=== PATIENT | male | born 1980 | race Caucasian/White ===

== ENCOUNTER → 2021-06-11 21:51 | Outpatient (CLI) | payer OTHER, SELFPAY ==
[2021-06-11 22:31] LABS: Absolute Lymphocyte Count 2.41 X10^3/uL (0.83-4.51); Absolute Neutrophil Count 2.2 X10^3/uL (2.0-7.7); Basophil# 0.04 X10^3/uL; Basophil% 0.7 % (0-1); Eosinophil# 0.36 X10^3/uL; Eosinophils% 6.4 % (0-5); Hemoglobin 14.6 g/dL (13.0-16.5); Lymphocyte # 2.41 X10^3/ul (0.83-4.51); Mean Corp Hgb Conc 33.2 g/dL (32-36); Mean Corpuscular Hgb 30.9 pg (27.0-32.0); Mean Platelet Vol. 11.8 fl (6.2-12.0); Monocyte# 0.56 X10^3/uL; NRBC Flagged by Analyzer 0 % (0-5); Neutrophil # 2.23 X10^3/uL (2.7-7.7); Neutrophil % 39.7 % (47-70); Platelet Count 203 K/mm3 (150-450); RBC Distribution Width CV 12.9 % (11.6-14.6); RBC Distribution Width SD 44.6 fl (35.1-43.9); Red Blood Count 4.73 M/mm3 (4.6-6.2); White Blood Count 5.6 K/mm3 (4.4-11.0)
[2021-06-11 22:46] LABS: ALB/GLOB Ratio 1.2 RATIO (0.9-2.4); AST(SGOT) 24 U/L (15-37); Alanine Aminotransfer ALT/SGPT 51 U/L (16-61); Albumin, Serum 4.1 g/dL (3.2-5.0); Alkaline Phosphatase 84 U/L (45-117); Anion Gap 1 (5-15); BUN 17 mg/dL (7-18); BUN/Creat Ratio 17.4 RATIO (10-20); Calcium,Total 9.1 mg/dL (8.5-10.1); Chloride 106 mmol/L (98-107); Cholesterol 178 mg/dL (200); Creatinine, Serum 0.98 mg/dL (0.70-1.30); EST Glomerular Filtration Rate 91 mL/min (>60); Est Glom Filt Rate - Afr Amer 110 mL/min (>60); Globulin 3.4 g/dL (2.2-4.2); Glucose 83 mg/dL (74-106); High Density Lipoprotein 54 mg/dL; Potassium 3.7 mmol/L (3.5-5.1); Protein, Total 7.5 g/dL (6.4-8.2); Sodium Level 138 mmol/L (136-145); Triglycerides 143 mg/dL; Very Low Density Lipoprotein 29 mg/dL (5-40)
== END ==
PROVIDERS: Visit Provider Nurse Practitioner
DX: Z00.00 Encounter for general adult medical examination without abnormal findings (principal)
CPT/HCPCS: 80053; 80061; 85025

== ENCOUNTER → 2022-06-07 | Outpatient (CLI) | payer OTHER, SELFPAY ==
[2022-06-07 23:03] LABS: Absolute Lymphocyte Count 2.13 X10^3/uL (0.83-4.51); Absolute Neutrophil Count 2.6 X10^3/uL (2.0-7.7); Basophil# 0.05 X10^3/uL; Basophil% 0.9 % (0-1); Eosinophil# 0.35 X10^3/uL; Eosinophils% 6.3 % (0-5); Hematocrit 42.4 % (40-54); Hemoglobin 14.5 g/dL (13.0-16.5); Lymphocyte # 2.13 X10^3/ul (0.83-4.51); Lymphocyte % 38.2 % (19-41); Mean Corp Hgb Conc 34.2 g/dL (32-36); Mean Corpuscular Hgb 31.3 pg (27.0-32.0); Mean Corpuscular Volume 91.4 fL (80-94); Mean Platelet Vol. 11.7 fl (6.2-12.0); Monocyte# 0.43 X10^3/uL; Monocyte% 7.7 % (0-10); NRBC Flagged by Analyzer 0 % (0-5); Neutrophil % 46.7 % (47-70); Platelet Count 189 K/mm3 (150-450); RBC Distribution Width CV 12.7 % (11.6-14.6); RBC Distribution Width SD 42.3 fl (35.1-43.9); Red Blood Count 4.64 M/mm3 (4.6-6.2); White Blood Count 5.6 K/mm3 (4.4-11.0)
[2022-06-07 23:23] LABS: ALB/GLOB Ratio 1.3 RATIO (0.9-2.4); AST(SGOT) 23 U/L (15-37); Alanine Aminotransfer ALT/SGPT 42 U/L (16-61); Albumin, Serum 3.9 g/dL (3.2-5.0); Alkaline Phosphatase 82 U/L (45-117); Anion Gap 6 (5-15); BUN 13 mg/dL (7-18); BUN/Creat Ratio 11.2 RATIO (10-20); Calcium,Total 8.6 mg/dL (8.5-10.1); Chloride 107 mmol/L (98-107); Cholesterol 176 mg/dL (200); Creatinine, Serum 1.16 mg/dL (0.70-1.30); EST Glomerular Filtration Rate 74 mL/min (>60); Est Glom Filt Rate - Afr Amer 90 mL/min (>60); Globulin 3.1 g/dL (2.2-4.2); Glucose 99 mg/dL (74-106); High Density Lipoprotein 48 mg/dL; Potassium 3.7 mmol/L (3.5-5.1); Sodium Level 140 mmol/L (136-145); Triglycerides 176 mg/dL; Very Low Density Lipoprotein 35 mg/dL (5-40)
== END | disposition home or self-care (01) ==
PROVIDERS: Visit Provider Nurse Practitioner
DX: Z00.00 Encounter for general adult medical examination without abnormal findings (principal)
CPT/HCPCS: 80053; 80061; 85025

== ENCOUNTER → 2023-06-09 | Outpatient (CLI) | payer OTHER, SELFPAY ==
[2023-06-09 22:48] LABS: Absolute Lymphocyte Count 2.57 X10^3/uL (0.83-4.51); Absolute Neutrophil Count 2.4 X10^3/uL (2.0-7.7); Basophil# 0.08 X10^3/uL; Basophil% 1.3 % (0-1); Eosinophil# 0.44 X10^3/uL; Eosinophils% 7.4 % (0-5); Hematocrit 45.4 % (40-54); Hemoglobin 14.9 g/dL (13.0-16.5); Lymphocyte # 2.57 X10^3/ul (0.83-4.51); Mean Corp Hgb Conc 32.8 g/dL (32-36); Mean Corpuscular Volume 94.6 fL (80-94); Mean Platelet Vol. 11.5 fl (6.2-12.0); Monocyte# 0.46 X10^3/uL; Monocyte% 7.7 % (0-10); NRBC Flagged by Analyzer 0 % (0-5); Neutrophil # 2.43 X10^3/uL (2.7-7.7); Neutrophil % 40.6 % (47-70); Platelet Count 241 K/mm3 (150-450); RBC Distribution Width CV 13.3 % (11.6-14.6)
[2023-06-09 23:03] LABS: ALB/GLOB Ratio 1.2 RATIO (0.9-2.4); AST(SGOT) 23 U/L (15-37); Alanine Aminotransfer ALT/SGPT 37 U/L (16-61); Albumin, Serum 3.8 g/dL (3.2-5.0); Alkaline Phosphatase 85 U/L (45-117); Anion Gap 4 (5-15); BUN 15 mg/dL (7-18); BUN/Creat Ratio 13.5 RATIO (10-20); Calcium,Total 8.9 mg/dL (8.5-10.1); Chloride 105 mmol/L (98-107); Cholesterol 172 mg/dL (200); Creatinine, Serum 1.11 mg/dL (0.70-1.30); EST Glomerular Filtration Rate 78 mL/min (>60); Est Glom Filt Rate - Afr Amer 94 mL/min (>60); Globulin 3.3 g/dL (2.2-4.2); Glucose 89 mg/dL (74-106); High Density Lipoprotein 50 mg/dL; PSA,Total - Annual Screen 0.69 ng/mL (0.00-4.00); Potassium 4.4 mmol/L (3.5-5.1); Protein, Total 7.1 g/dL (6.4-8.2); Sodium Level 138 mmol/L (136-145); Triglycerides 214 mg/dL; Very Low Density Lipoprotein 43 mg/dL (5-40)
== END | disposition home or self-care (01) ==
PROVIDERS: PCP Nurse Practitioner; Visit Provider Nurse Practitioner
DX: Z00.00 Encounter for general adult medical examination without abnormal findings (principal); Z12.5 Encounter for screening for malignant neoplasm of prostate
CPT/HCPCS: 80053; 80061; 84153; 85025; G0103

== ENCOUNTER → 2025-05-16 | Outpatient (CLI) | payer OTHER, SELFPAY ==
--- OUTSIDE RECORDS SUMMARY | 2025-05-16 21:55 | XMS RPT_ITS | CCD ---
Author Organization [facility] InformFormerly [facility] Care Team Providers Care Parcel Post Clerk Name Role Phone Boytim DO, V Jerrod Primary Care Provider Boytim DO, V Jerrod Primary Care Provider Rupali Pro PA-C Unavailable [phone] BOYTIM, V JERROD Primary Care Unavailable KIA RAMSEY Attending Unavailable BOYTIM, V JERROD Primary Care Unavailable BOYTIM, V JERROD Primary Care Unavailable SHAINA MEJÍA Attending Unavailable BOYTIM, V JERROD Primary Care Unavailable KIA RAMSEY Attending Unavailable BOYTIM, V JERROD Primary Care Unavailable KIA RAMSEY Admitting Unavailable KIA RAMSEY Attending Unavailable BOYTIM, V JERROD Primary Care Unavailable GIOVANNY LU Attending Unavailable BOYTIM, V JERROD Primary Care Unavailable GIOVANNY LU Referring Unavailable BOYTIM, V JERROD Primary Care Unavailable ESSENCE SMITH Attending Unavailable BOYTIM, V JERROD Primary Care Unavailable KIA RAMSEY Attending Unavailable Allergies Allergy Classification Reported Allergen(s) Allergy Type Date of Onset Reaction(s) Facility (6 sources) Seasonal allergy; Translations: [SEASONAL ALLERGIES] Allergy to substance Other: See Comments [facility] Medications Current Medications Medication Drug Class(es) Dates Sig (Normalized) Sig (Original) amoxicillin 875 mg / clavulanate 125 mg oral tablet (1 source) Penicillin-class Antibacterial Start: 12-14-2022 End: 12-19-2022 take 1 tablet by mouth twice daily amoxicillin-clavul anic acid (AUGMENTIN) 875-125 mg per tablet Take 1 tablet by mouth twice daily for 5 days. 10 tablet 0 12/14/2022 12/19/2022 Active Comment on above: Take 1 tablet by man twice daily for 5 days. L.acidophilus-L.rha mnosus (PROBIOTIC) 15 billion cell capsule (5 sources) take 1 capsule by mouth once daily L.acidophilus-L.rh amnosus (PROBIOTIC) 15 billion cell capsule Take 1 capsule by mouth once daily. Active magnesium oxide 500 mg oral tablet (10 sources) Magnesium Oxide 500 mg magnesium tab Take by mouth once daily. Active pantoprazole 40 mg delayed release oral tablet (12 sources) Proton Pump Inhibitor Start: 05-30-2024 End: 08-08-2024 take 1 tablet by mouth once daily pantoprazole DR (PROTONIX) 40 mg tablet Take 1 tablet by mouth once daily. 90 tablet 08/08/2024 Active Polyethylene Glycols (10 sources) polyethylene glycol 3350 (MIRALAX ORAL) Take by mouth once daily. Active Completed/Discontinued Medications Medication Drug Class(es) Dates Sig (Normalized) Sig (Original) Buderers ointment (1 source) Start: 08-17-2019 Buderers ointment Nifedipine 0.3 % Lidocaine 2% Hydrocortisone 1.5% rectal ointment Apply 2-3 times a day to rectal area and up to 1cm inside as directed 30 g 2 08/17/2019 Active Comment on above: Nifedipine 0.3 % Lid ocaine 2% Hydrocortisone 1.5% rectal ointment Apply 2-3 times a day to rectal area and up to 1cm inside as directed nitroglycerin 0.004 mg/mg rectal ointment (1 source) Nitrate Vasodilator Start: 11-27-2021 take 30 g rectal route every twelve hours as needed nitroglycerin (RECTIV) 0.4 % (w/w) oint Indications: History of anal fissures by RECTAL route every 12 hours as needed for up to 14 days. 30 g 0 11/27/2021 Active Comment on above: by RECTAL route ever y 12 hours as needed for up to 14 days. Problems Active Problems Problem Classification Problem Date Documented Date Episodic/Chronic Esophageal disorders (10 sources) Laryngopharyngeal reflux; Translations: [Gastro-esophageal reflux disease without esophagitis] Onset: 09-25-2024 08-08-2024 Chronic Other upper respiratory disease (11 sources) Seasonal allergy; Translations: [Other seasonal allergic rhinitis] Onset: 02-27-2014 02-27-2014 Chronic Other upper respiratory disease (5 sources) Polyp of vocal cord ; Translations: [Polyp of vocal cord and larynx] 08-02-2024 Episodic Other upper respiratory disease (5 sources) Dysphonia; Translations: [Dysphonia] 08-02-2024 Episodic Other upper respiratory disease (4 sources) Singers' nodes; Translations: [Nodules of vocal cords] 08-08-2024 Episodic Other upper respiratory disease (1 source) Dysphonia; Translations: [Dysphonia] Onset: 10-11-2024 Episodic Other upper respiratory infections (1 source) Acute sinusitis; Translations: [Acute sinusitis, unspecified] Episodic Past or Other Problems Problem Classification Problem Date Documented Da te Episodic/Chronic Hemorrhoids (11 sources) Internal hemorrhoids; Translations: [Other hemorrhoids] Onset: 09-03-2011 09-03-2011 Episodic Malaise and fatigue (11 sources) Fatigue; Translations: [Other fatigue] Onset: 01-13-2012 01-13-2012 Episodic Other screening for suspected conditions (not mental disorders or infectious disease) (3 sources) Encounter for screening for lipoid disorders; Translations: [Encounter for screening for other suspected endocrine disorder] Onset: 06-15-2024 Episodic Results Test Name Value Interpretation Reference Range Facility [facility] 12-27-2024 CNOV Office Visit (OTOLTW ) -------- RAYMOND ARAUJO ([id number]) 1980 Date Time Provider Department 12/27/24 8:00 AM IKA RAMSEY OTOLTW During your visit today, we recorded the following information about you: Carla Acosta MA 12/27/2024 8:19 AM Signed Patient Entered Questionnaires 08/07/2024 10/12/2024 12/27/2024 Voice Handicap Index Score Physical Score 20 25 11 Functional Score 19 21 5 Emotional Score 19 22 3 Total Score 58 68 19 08/07/2024 10/12/2024 12/27/2024 Voice Handicap Index Score Physical Score 20 25 11 Functional Score 19 21 5 Emotional Score 19 22 3 VHI Total Score 58 68 19 Kia Ramsey MD 12/27/2024 8:19 AM Signed CC: Raymond Araujo is a 44 year old male seen as a return patient with a history of vocal polyp, nodule IMPRESSION AND PLANS: (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 He feels that he is completely back to normal. 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 He will consider a couple of singing lessons. On stroboscopy, his larynx is essentially normal with normal vibration and pliability. At this poit he will use his voice normally and will see me back as needed. He was treated for reflux around the time of surgery but over the past couple of weeks has weaned from the pantoprazole and is not having any symptoms so he will use only as needed HPI: History of vocal polyp and nodule Surgery 10/11/24: Procedure(s): Direct microlaryngoscopy with microflap excision of right true vocal fold nodule Direct microlaryngoscopy with microflap excision of left true vocal fold polyp Direct microlaryngoscopy with bilateral true vocal fold subepithelial decadron injection Operative indications: Raymond Araujo is a 44 year old male with dysphonia. Exam in clinic showed a left vocal fold polyp and an opposing right contact nodule. He was recommended to undergo direct microlaryngoscopy and excision of the lesions. Risks and benefits were discussed and he elected to proceed. Anesthesia: General Findings: Easy exposure with dedo laryngoscope. Good tolerance of THRIVE, did not require intubation for the duration of the case Left true vocal fold polyp, easily elevated Right true vocal fold contact nodule. Easily elevated from vocal ligament with injection. Prior to Excision: Post Excision: Note from Shaina mejía on 10/19: IMPRESSION AND PLAN Consultation requested by Dr. Ramsey for evaluation and recommendations regarding management of dysphonia in [facility]. Raymond Araujo is a 44 year old patient. He is s/p excision of polyp and nodule with Dr. Ramsey on 11/10/23. He presents today for post-op follow up. The patient reports he was compliant with 3-4 days of total voice rest and has been using his voice minimally since this time. 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 Videostroboscopy performed today by Dr. Ramsey demonstrated good healing of the vocal folds with minimal inflammation of the left cord. Perceptually the patient's voice is resonant with minimal strain or breathiness. The patient was introduced to post-op voice guidelines and instructed in straw phonation. He will continue with virtual work format for one more week to minimize voice use AND then monitor voice use upon in-person return. He will avoid singing until 6+ weeks from procedure. The patient is scheduled to see me in November for voice therapy follow-up to target any lingering voice complaints. Prognosis is good. Goals: Patient will maintain adequate voice hygiene regimen for at least 3 consecutive sessions. Patient will report improved functional voice outcomes, as measured by ability to fulfill daily voice demands without issue, across 3 consecutive sessions. Patient will utilize oral resonance-based tasks to achieve tonal clarity with 80% accuracy at the conversational level and during dynamic voice use independently. Patient will independently utilize cough/throat clear suppression strategies in 8 out of 10 opportunities. FINAL DIAGNOSIS A. Left vocal cord mass, biopsy: - Vocal cord nodule. B. Right vocal cord mass, biopsy: - Minute fragments of superficial squamous epithelium. ALLERGIES Allergen Reactions Seasonal Allergies Other: See Comments Sneeze,runny nose Current Outpatient Medications Medication Sig polyethylene glycol 3350 (MIRALAX ORAL) Take by mouth once daily. Magnesium Oxide 500 mg magnesium tab Take by mouth once daily. L.acidophilus-L.rhamnosu s (PROBIOTIC) 15 billion cell capsule Take 1 capsule by mouth once daily. (Patient not taking: Reported on 12/27/2024) pant (more content not included)... Normal [facility] CNOVon 10-19-2024 CNOV Office Visit (OTSPLP ) -------- LETTYRAYMOND ([id number]) 1980 M Date Time Provider Department 10/19/24 9:20 AM SHAINA MEJÍA During your visit today, we recorded the following information about you: Shaina Mejía, [facility]-TRANSMISSION MAINTENANCE SUPERVISOR 10/19/2024 9:08 AM Addendum You can contact me at my work phone [phone], Shaina Mejía Post-op voice use: ~Voice rest after surgery is usually 3 to 5 days, but could be longer as recommended by your doctor. No whispering. You may need a white erase board and [id number] options for your phone. You will have the urge to cough at this point. Chloraseptic or Robitussin is fine to use. You can eat and drink normally. Cold liquids and popsicles are fine if that feels good. Recommendations for Voice Care after Vocal Fold Surgery: Post op day 0 to day 4: DO NOT TALK AT ALL Write, text, email. Try to avoid laughing loudly or coughing No lifting heavy items. No smoking of any substance Text to speech zee on phone Day 4 to Day 7: After your defined period of voice rest start talking slowly and gradually. 1- 5 minutes per hour. Pace and space your voice use. Still stay very quiet; no yelling, screaming, hollering across the house. Stay close to your conversational partner and make sure they have your attention. You may find over-articulation helpful. No whispering. Start using the straw for voice exercises 4 times a day for a few minutes. Hold comfortable notes and gentle pitch glides. Day 7 to Day 14: Talk at low volume, for up to 10 minutes per hour. Do not raise your voice, talk loudly, yell, or talk for long. Continue with voice use through gentle straw exercises daily. Day 14 to 21 Up to 15 mins per hour of voice use. Talking gently for longer times. Still no loud voice use, yelling, singing, or talking too long. If voice feels too rough or strained, do less Day 21 onward: If it feels ok, do more talking gradually No yelling, loud talking or singing for up to 6 weeks after surgery. If it does not feel right, call us for a follow up. *Use straw phonation 1-2 minutes 5-6 times a day throughout the healing process (after the first 4 days of complete voice rest)* Straw Phonation: wrap your lips around the straw and make noise into the straw. The sound should be buzzy with gentle airflow on your hand. Focus on where you feel sensation, with vibration at the lips (like a kazoo). Hold sustained sounds and glides up/down in a small vocal range. Coughing and throat clearing suppression (both slam your vocal cords together and can be damaging to vocal folds after surgery): Hard swallow: Swallow hard with effort. You can do this with just your saliva or small sips of water. Sniff and Blow Breath: Sniff in through the nose, out through the mouth. Alternatively, you can sniff through the nose then round the lips and pulse the exhalation. Sniff and Hiss: sniff in through the nose, his out on sssss sound, like a snake. Alternatively, you can sniff through the nose and use a pulsed hiss on exhalation. Straw Breath: Breathe in and out through rounded lips. Other helpful items: Gargle with seltzer water: 5 gargles of sparkling water. Gargle back and spit out. 2-3x/day or as needed. Non-medicated lozenges: look for pectin-based lozenges, not menthol-based; something sugar free Cepacol Lozenges: numbing drops. Biotene products: gel or mouthwash. In the oral care aisle. Sipping water to increase hydration: Keep a small bottle of water with you AND take small sips of water throughout the day. This keeps you swallowing AND prevents coughing. Shaina Mejía, CCC-TRANSMISSION MAINTENANCE SUPERVISOR 10/19/2024 10:18 AM Signed [facility] Shaina Mejía M.A., CCC-TRANSMISSION MAINTENANCE SUPERVISOR NAME: Raymond Araujo DATE OF SERVICE: October 19, 2024 Onset of Illness: 08/08/2022 Initial Day of Treatment: October 19, 2024 Treatment Plan Date: October 19, 2024 IMPRESSION AND PLAN Consultation requested by Dr. Ramsey for evaluation and recommendations regarding management of dysphonia in [facility]. Raymond Araujo is a 44 year old patient. He is s/p excision of polyp and nodule with Dr. Ramsey on 11/10/23. He presents today for post-op follow up. The patient reports he was compliant with 3-4 days of total voice rest and has been using his voice minimally since this time. 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 Videostroboscopy performed today by Dr. Ramsey demonstrated good healing of the vocal folds with minimal inflammation of the left cord. Perceptually the patient's voice is resonant with minimal strain or breathiness. The patient was introduced to post-op voice guidelines and instructed in straw phonation. He will continue with virtual work format for one more week to minimize voice use AND then monitor voice use upon in-person return. He will a (more content not included)... Normal 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 He is nearly healed but is aware that it will be 6 weeks or so before back to full voice. I will therefore get him in to see one of our voice pathologists to work with him on voice progression and hygiene. He is on reflux treatment and I would like him to stay on it during this healing period. I would like to see him back in 6-8 weeks HPI: Patient is S/P surgery on 11/10/24: Post-op Diagnosis: Bilateral True Vocal Fold Lesions Dysphonia Procedure(s): Direct microlaryngoscopy with microflap excision of right true vocal fold nodule Direct microlaryngoscopy with microflap excision of left true vocal fold polyp Direct microlaryngoscopy with bilateral true vocal fold subepithelial decadron injection Operative indications: Raymond Araujo is a 44 year old male with dysphonia. Exam in clinic showed a left vocal fold polyp and an opposing right contact nodule. He was recommended to undergo direct microlaryngoscopy and excision of the lesions. Risks and benefits were discussed and he elected to proceed. Anesthesia: General Findings: Easy exposure with dedo laryngoscope. Good tolerance of THRIVE, did not require intubation for the duration of the case Left true vocal fold polyp, easily elevated Right true vocal fold contact nodule. Easily elevated from vocal ligament with injection. Prior to Excision: Post Excision: FINAL DIAGNOSIS A. Left vocal cord mass, biopsy: - Vocal cord nodule. B. Right vocal cord mass, biopsy: - Minute fragments of superficial squamous epithelium ALLERGIES Allergen Reactions Seasonal Allergies Other: See Comments Sneeze,runny nose Current Outpatient Medications Medication Sig L.acidophilus-L.rhamnosu s (PROBIOTIC) 15 billion cell capsule Take 1 capsule by mouth once daily. pantoprazole DR (PROTONIX) 40 mg tablet Take 1 tablet by mouth once daily. polyethylene glycol 3350 (MIRALAX ORAL) Take by mouth once daily. Magnesium Oxide 500 mg magnesium tab Take by mouth once daily. No current facility-administered medications for this visit. PAST MEDICAL HISTORY Diagnosis Date GERD (gastroesophageal reflux disease) Seasonal allergies PAST SURGICAL HISTORY Procedure Laterality Date NONE Social History: Social History Tobacco Use Smoking status: Never Smokeless tobacco: Never Vaping Use Vaping status: Never Used Substance Use Topics Alcohol use: No Drug use: No PHYSICAL EXAM: On physical examination Raymond Araujo is a well-developed, well nourished male. The voice is much better. Cranial nerves II-XII are grossly intact Mental status revealed patient to be alert and oriented. Mood is appropriate. Details of the physical examination: HEAD AND FACE: Physical examination of the head, neck, external nose, external ears, mouth and face fails to demonstrate any significant abnormality or asymmetry to critical face to face observation. Skin and scalp are normal. ORAL CAVITY/OROPHARYNX: No masses or lesions LARYNX: Recommend flexible laryngoscopy with stroboscopy NECK: No adenopathy VHI (original/full) Patient Entered Questionnaires 07/30/2024 08/07/2024 10/12/2024 Voice Handicap Index Score Physical Score 20 20 25 Functional Score 20 19 21 Emotional Score 20 19 22 VHI Total Score 60 58 68 CHARTS REVIEWED: operative report, images and pathology Kia Ramsey MD PROCEDURE NOTE: Recommended Videostroboscopy. Risks, benefits and alternatives were explained. The patient wished to proceed he was reidentified and a time out obtained. PROCEDURE: Videostroboscopy PREOPERATIVE DIAGNOSIS: vocal polyp and nodule POSTOPERATIVE DIAGNOSIS: same INDICATIONS: Evaluation larynx to:evaluate lesion, assess vibratory margin, and postoperative assessment The results of the examination were reviewed with the patient. ANESTHESIA: Lidocaine 2% and Juice-Synephrine ?% PROCEDURE: With the patient sitting upright, a flexible scope was used : Topical anesthesia and vasoconstriction was applied with spray to the right and left side(s) of the nose. After waiting an appropriate period of time for anesthesia/vasoconstrict ion to become effective, a flexible laryngoscope was passed through the right side(s) of the nose. Nasopharynx was normal. FINDINGS: (more content not included)... Normal [facility] 10-19-2024 [facility] Telephone (HNQ) -------- RAYMOND ARAUJO ([id number]) 1980 M Date Time Provider Department 10/19/24 SHAINA MEJÍA [facility] During your visit today, we recorded the following information about you: Luh Isaacs 10/19/2024 1:06 PM Signed Raymond is calling Shaina Mejía CCC-TRANSMISSION MAINTENANCE SUPERVISOR today to request Letter (Asking for letter to give employer to request to [employer] certified internetwork expert, please contact) Patient has been identified by name and birthdate. Duration of symptoms: N/A Person calling: self Call patient at: on cell [phone] (home) [phone] (cell) Was an appointment scheduled: No Closing statement: Results or non-symptom based questions: Thank you for calling [facility], your call will be returned within the next business day. Luh Winslow 10/19/2024 4:03 PM Signed Also wants to know if he could get Rx for nebulizer,please advise. Suad Hollingsworth RN 10/22/2024 3:04 PM Signed Per provider, called patient and left message r/t below Padmini Bai LPN 10/25/2024 3:55 PM Signed Spoke with provider. Left detailed voicemail . Will close encounter. Allergies As of Date: 10/19/2024 Noted Allergy Reaction SEASONAL ALLERGIES 09/25/2024 14 - Other: See Comments Comments: Sneeze,runny nose Date Reviewed: 10/19/2024 Reviewed by: Suad Alvares RN - Fully Assessed Reason for Visit: Letter [264] Cmt: Asking for letter to give employer to request to [employer] certified internetwork expert, please contact Prescriptions as of 10/29/2024 - L.acidophilus-L.rhamnosu s (PROBIOTIC) 15 billion cell capsule Take 1 capsule by mouth once daily. - pantoprazole DR (PROTONIX) 40 mg tablet Take 1 tablet by mouth once daily. - polyethylene glycol 3350 (MIRALAX ORAL) Take by mouth once daily. - Magnesium Oxide 500 mg magnesium tab Take by mouth once daily. Problem List As Of Date 10/19/2024 Noted Resolved Internal hemorrhoids [K64.8] 09/03/2011 Fatigue [R53.83] 01/13/2012 Seasonal allergies [J30.2] 02/27/2014 GERD (gastroesophageal reflux disease) [K21.9] 09/25/2024 Encounter Status:Closed by SUAD ALVARES on 10/29/24 [facility] ANES POSTPROC EVALon 025 ANES POSTPROC EVAL HNO ID: [id number] Author: SUNNY REID MD Service: ? Author Type: Physician Type: Anesthesia Postprocedure Evaluation Filed: 10/11/2024 10:20 Note Text: POST ANESTHESIA EVALUATION NOTE : 1980 Procedure Summary Date: 10/11/24 Room / Location: [address] [place] Anesthesia Start: 903 Anesthesia Stop: 956 Procedure: LARYNGOSCOPY, DIRECT, OPERATIVE, W/ OPERATING MICROSCOPE OR TELESCOPE,W/SUBMUCOSAL REMOVAL OF NON-NEOPLASTIC LESION OF VOCAL CORD; RECONSTRUCTION WITH LOCAL TISSUE FLAP(S) (Bilateral) Diagnosis: Dysphonia (Dysphonia [R49.0]) Surgeons: Kia Ramsey MD Responsible Provider: Sunny Reid MD Anesthesia Type: general ASA Status: 2 Anesthesia Type: general Airway Type: supplemental O2 Last Vitals Vitals Value Taken Time BP 100/57 10/11/24 1015 Temp 36.1 ?C (97 ?F) 10/11/24 0955 HR SpO2 68 10/11/24 1015 Resp 16 10/11/24 1015 SpO2 97 % 10/11/24 1015 Post Anesthesia Patient Status Patient Evaluation: PACU. PACU/ICU Patient Condition: stable. Anticipated Disposition: phase 2 then home. Neurological Status: aware and responsive. Pulmonary Status: breathing comfortably on room air Airway Control: returned to baseline unsupported. Cardiovascular Status: stable. Pain Management: clinically adequate - multimodal analgesia pain management approach Postoperative Hydration: acceptable. Intraoperative Events: no significant anesthesia events Recommendation: continue current plan of care. Anesthesia Observations No Documentation SIGNATURE: Sunny Reid MD PATIENT NAME: Raymond Araujo DATE: October 11, 2024 TIME: 10:20 AM CSN: [id number] Normal [facility] ANES PRE-OPon 10-11-2024 ANES PRE-OP HNO ID: [id number] Author: SUNNY REID MD Service: ? Author Type: Physician Type: Anesthesia Preprocedure Evaluation Filed: 10/11/2024 08:49 Note Text: ANESTHESIOLOGY DAY OF SURGERY NOTE : 1980 Procedure Information Date/Time: 10/11/24 0855 Procedure: LARYNGOSCOPY, DIRECT, OPERATIVE, W/ OPERATING MICROSCOPE OR TELESCOPE,W/SUBMUCOSAL REMOVAL OF NON-NEOPLASTIC LESION OF VOCAL CORD; RECONSTRUCTION WITH LOCAL TISSUE FLAP(S) (Bilateral) Location: [address] [place] Surgeons: Kia Ramsey MD Estimated body mass index is 21.92 kg/m? as calculated from the following: Height as of 09/25/24: 182.9 cm (6'). Weight as of 09/25/24: 73.3 kg (161 lb 9.6 oz). Most recent hematocrit and potassium results: Potassium 4.2 06/15/2024 Relevant Problems CARDIO (+) Internal hemorrhoids GI (+) GERD (gastroesophageal reflux disease) I - PHYSICAL EVALUATION AIRWAY Patient intubated: No. Tracheostomy tube not present Mallampati: II. TM distance: >3 FB. Neck ROM: full ROM without neurological symptoms. Mouth opening: adequate. Short neck: no. Thick neck: no DENTAL Normal dental observations. Dental findings: teeth intact. Additional exam findings: no II - ANESTHESIA PLAN ASA Score: 2 Anesthetic Plan: general Airway type: supplemental O2 NPO Status: adequate Beta Yolis Monitoring Plan Monitoring plan: Standard ASA. Post Procedure Analgesic Plan Postoperative analgesic plan: parenteral or oral opioids and multimodal analgesia. Informed Consent Anesthetic risks, benefits, alternatives, personnel and consent discussed: yes. Patient / Responsible Democrat agrees to proceed: yes Patient / Surrogate agrees to blood products: blood products not planned DNR status not reviewed with patient and/or family prior to surgery. Significant changes in the patient condition since the History and Physical, not otherwise documented in primary service progress note: no. Potential Anesthesia issues that may suggest increased risk of complications or contraindication to planned procedure: none. Vitals Value Taken Time BP 147/74 10/11/24 0810 Pulse 92 10/11/24 0810 Resp 18 10/11/24 0810 Temp 36.2 ?C (97.2 ?F) 10/11/24 0810 SpO2 97 % 10/11/24 0810 Facility-Administered Medications as of 10/11/2024 Medication Dose Route Frequency lidocaine (PF) 10 mg/mL (1 %) 1-2 mg injection (XYLOCAINE) 0.1-0.2 mL INTRADERMAL PRN NaCl 0.9% iv flush bag 20 mL INTRAVENOUS PRN Outpatient Medications as of 10/11/2024 Medication Sig polyethylene glycol 3350 (MIRALAX ORAL) Take by mouth once daily. Magnesium Oxide 500 mg magnesium tab Take by mouth once daily. I have interviewed and examined the patient. I have reviewed the medical record and/or the pre-anesthesia evaluation, pertinent labs, and test results. This contains updated information obtained within 48 hours of Surgery/Procedure. SIGNATURE: Summit Yassine, MD PATIENT NAME: Raymond Araujo DATE: October 11, 2024 TIME: 8:12 AM CSN: [id number] [facility] HISTORY PHYSICALon HISTORY PHYSICAL HNO ID: [id number] Author: KIA RAMSEY MD Service: Otolaryngology Author Type: Physician Type: H&P Filed: 10/11/2024 08:35 Note Text: UPDATED HISTORY AND PHYSICAL EXAMINATION SERVICE DATE: 10/11/2024 SERVICE TIME: 8:35 AM PHYSICAL EXAM MUST BE COMPLETED ON ADMISSION The History and Physical (completed in the past 30 days) has been reviewed and the patient has been examined. The contents accurately reflect the patient's condition with the following additions or revisions since the HANDP was completed. Examination indicates no changes. This HANDP can be found in the Electronic Medical Record dated 09/25/24. SIGNATURE: Kia Ramsey MD PATIENT NAME: Raymond Araujo DATE: October 11, 2024 TIME: 8:[address] [facility] NURSING PROGon 10-11-2024 NURSING PROG HNO ID: [id number] Author: ELVIA WOODSON RN Service: ? Author Type: Registered Nurse Type: Nursing Progress Note Filed: 10/11/2024 10:49 Note Text: Patient wanted to know if he could use Grethers Elerflower throat lozenges and Vocal Ease spray at home. Contacted Dr. Ramsey, patient okay to take throat lozenges but to hold off for one week prior surgery before using Vocal Ease. Informed patient. Patient/ verbalizes understands instruction. [facility] OPERATIVE NOon 10-11-2024 OPERATIVE NO HNO ID: [id number] Author: KIA RAMSEY MD Service: Otolaryngology Author Type: Physician Type: Operative Report Filed: 10/11/2024 10:33 Note Text: OPERATIVE REPORT LOG ID: [id number] Patient Name: Raymond Araujo : 1980 Surgery/Procedure Date: 10/11/2024 Incision/Procedure Start Time: 9:17 AM Incision Close/Procedure End Time: 9:41 AM Surgeon(s) and Alining Inspector(s): Surgeons and Role: * Kia Ramsey MD - Primary * Sidra Moreno MD - Resident - Assisting Pre-op Diagnosis: Bilateral True Vocal Fold Lesions Dysphonia Post-op Diagnosis: Bilateral True Vocal Fold Lesions Dysphonia Procedure(s): Direct microlaryngoscopy with microflap excision of right true vocal fold nodule Direct microlaryngoscopy with microflap excision of left true vocal fold polyp Direct microlaryngoscopy with bilateral true vocal fold subepithelial decadron injection Operative indications: Raymond Araujo is a 44 year old male with dysphonia. Exam in clinic showed a left vocal fold polyp and an opposing right contact nodule. He was recommended to undergo direct microlaryngoscopy and excision of the lesions. Risks and benefits were discussed and he elected to proceed. Anesthesia: General Findings: Easy exposure with dedo laryngoscope. Good tolerance of THRIVE, did not require intubation for the duration of the case Left true vocal fold polyp, easily elevated Right true vocal fold contact nodule. Easily elevated from vocal ligament with injection. Prior to Excision: Post Excision: Operative Details: The patient was taken to the operative suite and a huddle was performed, all present were in agreement. The patient was sedated and THRIVE was initiated. The patient was then prepped and draped in the appropriate fashion. A time-out was then performed. We first began by inserting a tooth guard over the maxillary entition for protection during the procedure. The dedo laryngoscope was then advanced into the oral cavity and oropharynx until the larynx was brought into view. Once the larynx was adequately visualized the patient was placed into suspension. Microlaryngoscopy was initiated with a 0-degree Conley endoscope and the larynx was visualized. Thorough examination revealed the above findings. We decided to proceed with direct excision via microflaps. We then proceeded to bring the microscope into the field to assist with meticulous dissection. The vocal folds were further palpated and examined to assess for any further pathology. The procedure was begun on the left. An incision was made along in the superior face of the left true vocal fold extending from posterior to anterior, just lateral to the lesion using the sickle knife. We then developed a microflap plane using the flap elevator between the vocal ligament and the lesion. Using sharp scissors to both dissect and cut, the entire lesion was removed and sent for pathology. The remaining mucosa was carefully redraped over the vocal ligament as to line up with the original incision site as best as possible. Decadron (0.1 ml of 10 mg/ml) was then injected into the excision bed with an endocraft needle. Attention was then turned to the right. Palpation revealed a thick, firm nodule and we elected to remove it. Decadron (0.1 ml of 10 mg/ml) was then injected into the vocal fold just lateral to the base of the lesion using the endocraft needle. An incision was made along in the superior face of the right true vocal fold extending from posterior to anterior, just lateral to the lesion using the sickle knife. We then developed a microflap plane using the flap elevator between the vocal ligament and the lesion. Dissection was continued with sharp scissors. The entire lesion was removed and sent for pathology. The remaining mucosa was carefully redraped over the vocal ligament as to line up with the original incision site as best as possible. Hemostasis was intermittently achieved with epinephrine soaked pledgets. Reexamination of the vocal cords revealed absence of any further lesions. An LTA was applied with 1% lidocaine. The laryngoscope was then taken out of suspension and removed under direct visualization without injury to the oral cavity. The tooth guard was removed and no injury was noted. The patient was then turned to anesthesia for wakeup and extubation. The patient was transported to the PACU in stable condition. Estimated Blood Loss: 2 cc's Specimens: ID Type Source Tests Collected by Time Destination A : LEFT VOCAL CORD MASS Tissue Vocal Cord, Left, Biopsy SURGICAL PATHOLOGY Kia Ramsey MD 10/11/2024 9:27 AM B : RIGHT VOCAL CORD MASS Tissue Vocal Cord, Right, Biopsy SURGICAL PATHOLOGY Kia Ramsey MD 10/11/2024 9:36 AM Implantable Devices: None Drains: None Complications: None Immediate Dr. Ramsey was present and participated in the entirety of the proced (more content not included)... Normal [facility] SURGICAL PATHOLOGYon [address] [facility] Comment on above: Order Comment: Speci men Type: TISSUE SPECIMENOrdering Facility: [facility] Address: [address] [place] [address] Result Comment: Surg ica Pathology Report Case: [id number] Authorizing Provider: Kia Ramsey MD Collected: 10/11/2024 09:27 AM Ordering Location: [facility] Received: 10/11/2024 01:50 PM Surgery Pathologist: Karina Shukla MD Specimens: A) - Vocal Cord, Left, Biopsy, LEFT VOCAL CORD MASS B) - Vocal Cord, Right, Biopsy, RIGHT VOCAL CORD MASS Performed By: #### S ####[facility] LABCLIA [id number] [address] [place] CLINICAL HISTORY Normal [facility] Comment on above: Order Comment: Speci men Type: TISSUE SPECIMENOrdering Facility: [facility] Address: [address] [place] [address] Result Comment: Pre- op diagnosis: Dysphonia [R49.0] Performed By: #### S ####[facility]IA [id number] [address] DIAGNOSIS COMMENT Multiple deeper leve ls were examined. [facility] Comment on above: Order Comment: Speci men Type: TISSUE SPECIMENOrdering Facility: [facility] Address: [address] [place] [address] Performed By: #### S ####[facility]CLIA [id number] [address] FINAL DIAGNOSIS Normal [facility] Comment on above: Order Comment: Speci men Type: TISSUE SPECIMENOrdering Facility: [facility] Address: [address] [place] [address] Result Comment: A. L eft vocal cord mass, biopsy: - Vocal cord nodule. B. Right vocal cord mass, biopsy: - Minute fragments of superficial squamous epithelium. Performed By: #### S ####[facility] [id number] [address] [place] FINAL PERFORMING LAB Normal [facility] Comment on above: Order Comment: Speci men Type: TISSUE SPECIMENOrdering Facility: [facility] Address: [address] [place] [address] Result Comment: Diag nostic interpretation performed at [place] [address] CLIA# [id number] Computer Technical Specialist: Kyle De Luna M.D. Performed By: #### S ####[facility] [id number] [place] [address] [place] GROSS DESCRIPTION Normal [facility] Comment on above: Order Comment: Speci men Type: TISSUE SPECIMENOrdering Facility: [facility] Address: [address] [place] [address] Result Comment: A. V ocal Cord, Left, Biopsy Labeled left vocal cord mass Received: In Formalin Number of tissue fragments: Multiple Specimen dimensions: 0.3 x 0.2 x 0.2 cm Cassette Code: Totally submitted intact Gross examination performed at [facility], [address] [place] [address] CLIA# [id number] October 11, 2024 5:41 PM B. Vocal Cord, Right, Biopsy Labeled right vocal cord mass Received: In Formalin Number of tissue fragments: One Specimen dimensions: 0.2 x <0.1 x <0.1 cm Cassette Code: Totally submitted intact Specimen may not survive processing. Gross examination performed at [facility], [address] [place] [address] CLIA# [id number] October 11, 2024 5:41 PM Performed By: #### S ####[facility] LABIA [id number] [address] [place] HISTORY PHYSICALon HISTORY PHYSICAL HNO ID: [id number] Author: VENITA ANN PA-C Service: ? Author Type: Physician Alining Inspector Type: H&P Filed: 09/25/2024 07:57 Note Text: [facility] HISTORY AND PHYSICAL EXAMINATION SERVICE DATE: 09/25/2024 SERVICE TIME: 7:37 AM PRIMARY CARE PHYSICIAN: V Jerrod Boytim, DO REASON FOR VISIT: Raymond Araujo is a 44 year old male who is scheduled for Bilateral - LARYNGOSCOPY, DIRECT, OPERATIVE, W/ OPERATING MICROSCOPE OR TELESCOPE,W/SUBMUCOSAL REMOVAL OF NON-NEOPLASTIC LESION OF VOCAL CORD; RECONSTRUCTION WITH LOCAL TISSUE FLAP(S) at the request of Dr. Ramsey for consultation. My final recommendation will be communicated back to the requesting physician by way of shared medical record or letter. Assessment Patient has the following medical conditions which may affect brodie-operative course: GERD (gastroesophageal reflux disease) Assessment: takes pantoprazole daily GERD (gastroesophageal reflux disease) Assessment: takes pantoprazole daily Joseph Activity Status Index: METS: Walk indoors, such as around the house (1.75 METs) Do light work around the house, such as dusting or washing dishes (2.70 METs) Take care of self; that is eating, dressing, bathing, using the toilet (2.75 METs) Walk a block or two on level ground (2.75 METs) Do moderate work around the house, such as vacuuming, sweeping floors, or carrying in groceries (3.50 METs) Do yardwork, such as raking leaves, weeding, or pushing a power mower (4.50 METs) Climb a flight of stairs or walk up a hill (5.50 METs) DASI Score: 23.45 Patient denies any chest pain or undue shortness of breath with the above physical activity. STOP-Bang Score: Snores loudly Has been observed to stop breathing or choking/gasping during sleep Male patient Denies feeling tired, fatigued, or sleepy during the daytime Denies having high blood pressure BMI less than or equal to 35 kg/m2 Patient 50 years old or younger Does not have a large neck STOP-Bang Score: 3 [id number] Score: Age: <65 Sex: male CHF history: No Hypertension history: No Stroke/TIA/thromboemboli sm history: No Vascular disease history: No Diabetes history: No [id number] Score: 0 ANESTHESIA FINDINGS: Intubation History: No prior intubation Significant Anesthesia Considerations: has never had anesthesia Airway History: No prior intubation I - PHYSICAL EVALUATION AIRWAY Patient intubated: No. Tracheostomy tube not present Mallampati: I. TM distance: >3 FB. Neck ROM: full ROM without neurological symptoms. Mouth opening: adequate. Short neck: no. Thick neck: no Dennis present: no Microretrognathia/Micron agthia/Recessed Chin: No DENTAL Dental findings: teeth intact. Additional comments: Caps/crowns. II - ANESTHESIA PLAN Beta Yolis Monitoring Plan Post Procedure Analgesic Plan Prepared for surgery: This patient is optimally prepared for surgery. CONSULTS: Patient does not require consults for optimization at this time. The Following Tests/Procedures Have Been Initiated: Labs not indicated per [facility] protocol, EKG not indicated per [facility] protocol Planned Anesthetic: Per anesthesia choice Subjective CHIEF COMPLAINT: vocal cord polyp HPI: Raymond is a 44 y/o male who c/o hoarse voice x 2 years, that has worsened over the past 5 months. No recent illness, difficulty breathing or difficulty swallowing. He has been diagnosed with a vocal cord polyp and is scheduled for surgery on 10/11. REVIEW OF SYSTEMS: PAIN ASSESSMENT: General: No weight loss, malaise or fevers. Neuro: Negative for headaches, seizures, tremor or stroke Respiratory: Negative for cough, wheezing or shortness of breath. Negative for hemoptysis. Negative for sleep apnea. Cardiovascular: Negative for chest pain, orthopnea, PND, dizziness, lightheadedness or syncope. Negative for heart murmur. Negative for palpitations or arrhythmia. Negative for h/o DVT/PE. Negative for LE edema GI: Negative for abdominal pain, blood in the stool, black stools or change in bowel habits : No history of UTI in past 6 weeks. No history of renal failure. Not currently on or requiring dialysis. Negative for dysuria, hematuria, urgency, frequency or incontinence Endocrine: Negative for polyuria, polydipsia, heat or cold intolerance. Negative for goiter Hematology: No history of bleeding or clotting disorder. Pt is not taking anti-coagulation or platelet medications. No history of hematological symptoms or problems. Oncology: No history of CA metastasis, chemo within 30 days, or radiotherapy within 90 days. Has not lost 10% of body wt in 6 months. No history of oncological symptoms or problems. Psych: No history of psychiatric symptoms or problems. Marijuana use: No Musculoskeletal: Negative for joint pain or swelling, back pain or muscle pain. Skin: Negative for lesions, rash and itchi (more content not included)... [facility] CNOVon 08-08-2024 CNOV Office Visit (OTOLMN ) -------- RAYMOND ARAUJO ([id number]) 1980 M Date Time Provider Department 08/08/24 8:40 AM KIA RAMSEY OTOLMN During your visit today, we recorded the following information about you: Kia Ramsey MD 08/08/2024 9:08 AM Signed CC: Raymond Araujo is a 44 year old male seen as a return patient but new to me with a history of dysphonia IMPRESSION AND PLANS: He presents today with two years of dysphonia. Exam is notable for a left sided vocal fold polyp with opposing contact nodule on the right. We discussed three arms of management. This includes observation, surgical management, and voice therapy. Observation is not expected to provide any benefit, he will continue to have trouble with his voice. Voice therapy may be a useful adjunct, however, with surgical management, we will likely be able to get his voice back to normal function. We discussed post operative care including three days of voice rest and then two weeks of gentle voice use, with a total downtime of about 6-8 weeks. During this time, it would be helpful for him to work with our speech pathology colleagues as well. He will stay on protonix in the perioperative period and we have re-prescribed.. Risks of DML and microflap excision of left true vocal fold polyp and right true vocal fold nodule, with possible decadron injection were discussed. This can be done under THRIVE. Consent was signed. The risks, benefits and alternatives of direct microlaryngoscopy with excision of a vocal fold mass(es) were explained in detail including but not limited to the risk of anethesia, bleeding, infection, worsening voice, recurrent lesion or the need for further surgery, injury to the teeth and numbness of the tongue. The patient did seem to understand and did wish to proceed, a consent was signed and a pre-operative assessment was performed. Updated HANDP completed in clinic today. Physical exam: Resp: CTA b/l, no wheezing or rhonchi Cardio: S1, S2, no murmurs, RRR HPI: 44 year old male with two years of dysphonia. He has frequently been losing his voice, but since February, it has been more challenging to recover with each episode. He will lose his voice with more use. He uses vocal rest to get his voice back with each episode. He notes roughness to the voice. He denies pain with speaking. He is on Protonix 40 mg daily. He is a never smoker. He has never done voice therapy. His voice is not at 100% today. 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 ALLERGIES No Known Allergies Current Outpatient Medications Medication Sig pantoprazole DR (PROTONIX) 40 mg tablet take 1 tablet by mouth once daily. polyethylene glycol 3350 (MIRALAX ORAL) Take by mouth once daily. Magnesium Oxide 500 mg magnesium tab Take by mouth once daily. No current facility-administered medications for this visit. PAST MEDICAL HISTORY Diagnosis Date GERD (gastroesophageal reflux disease) Seasonal allergies PAST SURGICAL HISTORY Procedure Laterality Date NONE Social History: Social History Tobacco Use Smoking status: Never Smokeless tobacco: Never Vaping Use Vaping status: Never Used Substance Use Topics Alcohol use: No Drug use: No PHYSICAL EXAM: On physical examination Raymond Araujo is a well-developed, well nourished male. The voice is mildly rough. Cranial nerves II-XII are grossly intact Mental status revealed patient to be alert and oriented. Mood is appropriate. Details of the physical examination: HEAD AND FACE: Physical examination of the head, neck, external nose, external ears, mouth and face fails to demonstrate any significant abnormality or asymmetry to critical face to face observation. Skin and scalp are normal. ORAL CAVITY/OROPHARYNX: No masses or lesions LARYNX: Stroboscopy by Essence Simth on 08/02/24 was reviewed. This is notable for a left sided vocal fold polyp and opposing contact nodule on the right. There is incomplete closure around the polyp. NECK: No masses or lesions. VHI (original/full) Patient Entered Questionnaires 07/30/2024 08/07/2024 Voice Handicap Index Score Physical Score 20 20 Functional Score 20 19 Emotional Score 20 19 VHI Total Score 60 58 CHARTS REVIEWED: Progress Note from Essence Smith 08/02/24, Note from Giovanny Lu Stroboscopy 08/02/24 I participated in the history and physical exam of Raymond Araujo. I discussed the management of Raymond Araujo with the resident. I reviewed the note and agree with the documented findings and plan of care. Kia Ramsey MD Medical Decision Making: Problems: Moderate: New problem with uncertain prognosis Data: Unique source(s) for external note(s) reviewed: 2 Unique test result(s) reviewed: 1 Unique test(s) ordered: 1 Risk: Moderate: Drug manage (more content not included)... Normal [facility] CNOVon 08-02-2024 CNOV Office Visit (OTOLTW ) -------- LETTYRAYMOND Idalia ([id number]) 1980 Date Time Provider Department 08/02/24 7:55 AM ESSENCE SMITH OTOLTW During your visit today, we recorded the following information about you: Melida Mendieta MA 08/02/2024 7:51 AM Signed Patient Entered Questionnaires 07/30/2024 Voice Handicap Index Score Physical Score 20 Functional Score 20 Emotional Score 20 Total Score 60 07/30/2024 Voice Handicap Index Score Physical Score 20 Functional Score 20 Emotional Score 20 VHI Total Score 60 Essence Smith APRN.MANAGED CARE SPECIALIST 08/02/2024 8:58 AM Signed IMPRESSION: -Vocal cord polyp -Dysphonia PLAN: Discussed findings, diagnosis and management options with patient. - Raymond Araujo is presenting today for evaluation of hoarseness. Reports hoarseness for the last 2 years that will worsen the more he talks. Hoarseness has seem to be worse in the last 5 months. On video stroboscopy exam today, bilateral cords are mobile with a small polyp on the left anterior cord medial edge. Recommend following up with chief nuclear medicine technologist to discuss possible surgical options to remove the vocal cord polyp. FOLLOW UP: Return to see chief nuclear medicine technologist. Call sooner if problems develop. Essence Smith APRN.MANAGED CARE SPECIALIST Referring Provider: I was consulted by self for dysphonia. Response to consult is via shared electronic medical record for my opinion. Reason for Consult: Raymond Araujo is a 44 year old male who presents to [facility] Otolaryngology Department. Patient presents with: New Patient HPI: Raymond Araujo is a 44 year old male who presents with hoarseness. Over the last 2 years reports frequently losing his voice. Since February this past year, has been harder to get his voice back. Does have a hx of reflux, was started on Protonix, but voice really has not improved. Voice will worsen the more he uses it. Will improve with vocal rest. No difficulty swallowing. No pain, but maybe some slight discomfort. Never smoker. VHI: 07/30/2024 Voice Handicap Index Score Physical Score 20 Functional Score 20 Emotional Score 20 VHI Total Score 60 07/30/2024 Voice Handicap Index Score Physical Score 20 Functional Score 20 Emotional Score 20 Total Score 60 PAST MEDICAL HISTORY PAST MEDICAL HISTORY Diagnosis Date GERD (gastroesophageal reflux disease) Seasonal allergies PAST SURGICAL HISTORY PAST SURGICAL HISTORY Procedure Laterality Date NONE SOCIAL HISTORY Tobacco Use: Never Alcohol Use: No FAMILY HISTORY FAMILY HISTORY Problem Relation Age of Onset Thyroid Mother Hypertension Mother other (vitiligo) Father None Sister None Brother None Brother None Brother Cancer Maternal Grandmother MEDICATIONS polyethylene glycol 3350 (MIRALAX ORAL) Take by mouth once daily. Magnesium Oxide 500 mg magnesium tab Take by mouth once daily. pantoprazole DR (PROTONIX) 40 mg tablet Take 1 tablet by mouth once daily. ALLERGIES Patient has no known allergies. REVIEW OF SYSTEMS: Review of systems template on 08/02/2024 was completed in entirety on day of appointment and negative except where noted below: Constitutional: Negative for fever, appetite change, weight loss, weight gain Neurological: Negative for headaches, no history of stroke or seizure ENT: See HPI Cardiovascular: Negative for chest pain, dyspnea on exertion Respiratory: Is not experiencing shortness of breath. No history of asthma, COPD or recent pneumonia Gastrointestinal: Negative for nausea, vomiting Endo: No history of diabetes or thyroid disorders Heme/Lymph: No history of bleeding disorder Allergy: Negative for seasonal allergies, nasal congestion PHYSICAL EXAM Physical exam template on 08/02/2024 was completed in entirety on day of appointment and negative except where noted below: Vital Signs: There were no vitals taken for this visit. General: Well-developed, well-nourishes. No distress Respiratory Effort: Equal inspiration and expiration without stridor and is breathing comfortably on room air. Cardiovascular: No peripheral edema. Neuro: Awake, alert and oriented x3 Ears: External ear is intact. Nose: No scar or anatomic deformity. Septum is intact. Mucosa is pink without any purulence or polyps. Oral Cavity: Normal lips. The dentition is fair. The mucosal surfaces are moist with no lesions or abnormalities, tonsillar fossa symmetric. The oropharynx and pharynx is unremarkable and without lesions. Larynx: Please see scope exam below Neck:The neck is atraumatic and without scars. Trachea is midline. There is no lymphadenopathy, no skin lesions and no neck masses appreciated. Voice:Perceptual voice evaluation demonstrates dysphonia which is Mild. Voice is raspy and strained. DATA: Previous notes (more content not included)... Normal [facility] 06-18-2024 [facility] Telephone (FAMPBR) -------- RAYMOND ARAUJO ([id number]) 1980 M Date Time Provider Department 06/18/24 GIOVANNY LUPBR During your visit today, we recorded the following information about you: Melida Crabtree, LINDSEY 06/18/2024 1:03 PM Signed Pt Calling in to request an update on Forms that were given to Herlinda on visit on 05/30/24. Pt was told after labs are completed the forms will then be completed. Please fax forms to [phone] forms at the front to be picked up Please call Pt with update Jonathan Garcia MA 06/18/2024 1:09 PM Signed Pt notified, he received the fax. They were faxed 10 min ago. Allergies As of Date: 06/18/2024 (No Known Allergies) Date Reviewed: 05/30/2024 Reviewed by: Giovanny Lu APRN.MANAGED CARE SPECIALIST - Fully Assessed Prescriptions as of 06/18/2024 - polyethylene glycol 3350 (MIRALAX ORAL) Take by mouth once daily. - Magnesium Oxide 500 mg magnesium tab Take by mouth once daily. - pantoprazole DR (PROTONIX) 40 mg tablet Take 1 tablet by mouth once daily. Problem List As Of Date 06/18/2024 Noted Resolved Internal hemorrhoids [K64.8] 09/03/2011 Fatigue [R53.83] 01/13/2012 Seasonal allergies [J30.2] 02/27/2014 Encounter Status:Closed by JONATHAN GARCIA on 06/18/[address] [facility] Basic metabolic 2000 panelon 06-15-2024 Anion gap [Moles/Vol] 8 mmol/L Normal 8-15 [facility] Comment on above: Order Comment: Speci men Type: BLOOD SPECIMENOrdering Facility: [facility] Address: [address] [place] [address] Performed By: #### 2 4321-2 ####[facility] LABCLIA [id number] [place] [id number] [place] Calcium [Mass/Vol] 9.4 mg/dL Normal 8.5-10.2 [facility] Comment on above: Order Comment: Speci men Type: BLOOD SPECIMENOrdering Facility: [facility] Address: [address] [place] [address] Performed By: #### 2 4321-2 ####[facility] LABCLIA [id number] [place] [id number] [place] Chloride [Moles/Vol] 102 mmol/L Normal 98-107 [facility] Comment on above: Order Comment: Speci men Type: BLOOD SPECIMENOrdering Facility: [facility] Address: [address] [place] [address] Performed By: #### 2 4321-2 ####[facility] LABCLIA [id number] [place] [id number] [place] CO2 [Moles/Vol] 29 mmol/L Normal 22-30 [facility] Comment on above: Order Comment: Speci men Type: BLOOD SPECIMENOrdering Facility: [facility] Address: [address] [place] [address] Performed By: #### 2 4321-2 ####[facility] LABCLIA [id number] [place] [id number] [place] Creatinine [Mass/Vol] 1.09 mg/dL Normal 0.73-1.22 [facility] Comment on above: Order Comment: Speci men Type: BLOOD SPECIMENOrdering Facility: [facility] Address: [address] [place] [address] Performed By: #### 2 4321-2 ####[facility] LABIA [id number] [place] [address] [place] Creatinine and Glomerular filtration rate.predicted panel (S/P/Bld) 87 mL/min/1.73m??? Normal >=60 [facility] Comment on above: Order Comment: Speci men Type: BLOOD SPECIMENOrdering Facility: [facility] Address: [address] [place] [address] Result Comment: Donna mated Glomerular Filtration Rate (eGFR) is calculated using the 2020 CKD-EPI creatinine equation. This equation utilizes serum creatinine, sex, and age as parameters. The creatinine assay has traceable calibration to isotope dilution-mass spectrometry. Refer to KDIGO guidelines for clinical interpretation. In patients with unstable renal function, e.g. those with acute kidney injury, the eGFR may not accurately reflect actual GFR. Performed By: #### 2 4321-2 ####[facility] LABCLIA [id number] [place] [id number] [place] Glucose [Mass/Vol] 97 mg/dL Normal 74-99 [facility] Comment on above: Order Comment: Speci men Type: BLOOD SPECIMENOrdering Facility: [facility] Address: [address] [place] [address] Result Comment: The [place] Diabetes Association (ADA) provides guidance for cutoff values for fasting glucose and random glucose. The ADA defines fasting as no caloric intake for at least 8 hours. Fasting plasma glucose results between 100 to 125 mg/dL indicate increased risk for diabetes (prediabetes). Fasting plasma glucose results greater than or equal to 126 mg/dL meet the criteria for diagnosis of diabetes. In the absence of unequivocal hyperglycemia, results should be confirmed by repeat testing. In a patient with classic symptoms of hyperglycemia or hyperglycemic crisis, random plasma glucose results greater than or equal to 200 mg/dL meet the criteria for diagnosis of diabetes. Reference: Standards of Medical Care in Diabetes 2016, [place] Diabetes Association. Diabetes Care. 2016.39(Suppl 1). Performed By: #### 2 4321-2 ####[facility] LABCLIA [id number] [place] [address] [place] Potassium [Moles/Vol] 4.2 mmol/L Normal 3.7-5.1 [facility] Comment on above: Order Comment: Aii men Type: BLOOD SPECIMENOrdering Facility: [facility] Address: [address] [place] [address] Performed By: #### 2 4321-2 ####[facility] LABCLIA [id number] [place] [address] [place] Sodium [Moles/Vol] 139 mmol/L Normal 136-144 [facility] Comment on above: Order Comment: Speci men Type: BLOOD SPECIMENOrdering Facility: [facility] Address: [address] [place] [id number] Performed By: #### 2 4321-2 ####[facility] LABCLIA [id number] [place] [address] [place] Urea nitrogen [Mass/Vol] 15 mg/dL Normal 9-24 [facility] Comment on above: Order Comment: Speci men Type: BLOOD SPECIMENOrdering Facility: [facility] Address: [address] [place] [address] Performed By: #### 2 4321-2 ####[facility] LABCLIA [id number] [address] [place] Lipid 1996 panelon 4 Cholesterol [Mass/Vol] 189 mg/dL Normal <200 [facility] Comment on above: Order Comment: Speci men Type: BLOOD SPECIMENOrdering Facility: [facility] Address: [address] [place] [address] Result Comment: <200 mg/dL, Desirable 200-239 mg/dL, Borderline high >239 mg/dL, High Performed By: #### 2 4331-1 ####[facility] LABCLIA [id number] [address] LABIA [id number] [address] [place]#### 3016-3 ####[facility] LABCLIA [id number] [place] [address] [place] Cholesterol in HDL [Mass/Vol] 44 mg/dL Normal >39 [facility] Comment on above: Order Comment: Speci men Type: BLOOD SPECIMENOrdering Facility: [facility] Address: [address] [place] [address] Result Comment: 40-5 9 mg/dL, Acceptable >59 mg/dL, High: Negative risk factor for coronary heart disease <40 mg/dL, Low: Positive risk factor for coronary heart disease Performed By: #### 2 4331-1 ####[facility] LABCLIA [id number] [address] LABCLIA [id number] [address] [place]#### 3016-3 ####[facility] LABCLIA [id number] [address] Cholesterol in LDL [Mass/Vol] 117 mg/dL High <100 [facility] Comment on above: Order Comment: Speci men Type: BLOOD SPECIMENOrdering Facility: [facility] Address: [address] [place] [address] Result Comment: <100 mg/dL, Optimal 100-129 mg/dL, Near optimal/above optimal 130-159 mg/dL, Borderline high 160-189 mg/dL, High >189 mg/dL, Very high Secondary prevention optimal LDL Cholesterol levels are recommended to be < 70 mg/dL Performed By: #### 2 4331-1 ####[facility] LABCLIA [id number] [address] LABIA [id number] [address] OF [place]#### 3016-3 ####[facility] LABCLIA [id number] [address] STATES [facility] Cholesterol in LDL/Cholesterol in HDL [Mass ratio] 2.66 {ratio} High <2.54 [facility] Comment on above: Order Comment: Speci men Type: BLOOD SPECIMENOrdering Facility: [facility] Address: [address] [place] [address] Result Comment: Refe rence: 1. National Cholesterol Education Program ATP III Guideline At-A-Glance Quick Desk Reference: National Heart, Lung, and Blood Wilson. National Institutes of Health. 2001: NIH Publication No. 01-3305. 2. An International Atherosclerosis Society position paper: global recommendations for the management of dyslipidemia: executive summary, Atherosclerosis. 2014: 232(2):410-413. Performed By: #### 2 4331-1 ####[facility] LABCLIA [id number] [address] LABCLIA [id number] [address] [place]#### 3016-3 ####[facility] LABCLIA [id number] [address] [address] [place] Cholesterol in VLDL [Mass/Vol] 28 mg/dL Normal <30 [facility] Comment on above: Order Comment: Speci men Type: BLOOD SPECIMENOrdering Facility: [facility] Address: [address] [place] [address] Performed By: #### 2 4331-1 ####[facility] LABCLIA [id number] [place] [id number] [facility] LABCLIA [id number] [place] [address] [place]#### 3016-3 ####[facility] LABCLIA [id number] [place] [address] [place] Cholesterol non HDL [Mass/Vol] 145 mg/dL High <130 [facility] Comment on above: Order Comment: Speci men Type: BLOOD SPECIMENOrdering Facility: [facility] Address: [address] [place], [place] [id number] Result Comment: <130 mg/dL, Optimal 130-159 mg/dL, Near optimal/above optimal 160-189 mg/dL, Borderline high 190-219 mg/dL, High >219 mg/dL, Very high Secondary prevention optimal non HDL Cholesterol levels are recommended to be <100 mg/dL Performed By: #### 2 4331-1 ####[facility] LABCLIA [id number] [place] [address] [facility] LABCLIA [id number] [place] [address] [place]#### 3016-3 ####[facility] LABCLIA [id number] [address] [address] [place] Cholesterol.total/ Cholesterol in HDL [Mass ratio] 4.30 {ratio} Normal <5.10 [facility] Comment on above: Order Comment: Speci men Type: BLOOD SPECIMENOrdering Facility: [facility] Address: [address] [place], [place] [address] Performed By: #### 2 4331-1 ####[facility] LABCLIA [id number] [address] LABCLIA [id number] [place] [address] [place]#### 3016-3 ####[facility] LABCLIA [id number] [place] [address] [place] FASTING TIME [address] [facility] Comment on above: Order Comment: Speci men Type: BLOOD SPECIMENOrdering Facility: [facility] Address: [address] [place] [address] Performed By: #### 2 4331-1 ####[facility] LABCLIA [id number] [address] LABCLIA [id number] [place] [address] [place]#### 3016-3 ####[facility] LABCLIA [id number] [place] [address] [place] Triglyceride [Mass/Vol] 139 mg/dL Normal <150 [facility] Comment on above: Order Comment: Speci men Type: BLOOD SPECIMENOrdering Facility: [facility] Address: [address] [place], [place] [id number] Result Comment: <150 mg/dL, Normal 150-199 mg/dL, Borderline high 200-499 mg/dL, High >499 mg/dL, Very high Performed By: #### 2 4331-1 ####[facility] LABCLIA [id number] [address] LABCLIA [id number] [place] [address] [place]#### 3016-3 ####[facility] LABCLIA [id number] [place] [id number] [place] TSH SerPl-aCncon 06-15-2024 TSH Qn 2.590 m[IU]/L Normal 0.270-4.200 [facility] Comment on above: Order Comment: Speci men Type: BLOOD SPECIMENOrdering Facility: [facility] Address: [address] [place] [address] Performed By: #### 2 4331-1 ####[facility] LABCLIA [id number] [address] LABCLIA [id number] [address] [place]#### 3016-3 ####[facility] LABCLIA [id number] [address] STATES OF [facility] CNOVon 05-30-2024 CNOV Office Visit (FAMPBR ) -------- RAYMOND ARAUJO ([id number]) 1980 M Date Time Provider Department 05/30/24 3:40 PM GIOVANNY LU FAMPBR During your visit today, we recorded the following information about you: Pulse Blood pressure Weight 90/minute 108/64 71.1 kg Giovanny Lu, FUR BLOWING MACHINE ATTENDANT.MANAGED CARE SPECIALIST 06/12/2024 9:37 AM Signed SUBJECTIVE: Raymond Araujo is a 44 year old male here today for an annual physical. I reviewed his past medical, surgical, social, and family histories today and updated chart. Allergies, chronic medications, and supplements were also reviewed and his list in the chart is now up to date. Concern(s) today include: loss of voice/gerd Loss of voice: last few years, progressively worse the last few months. Occur with long speeches ~ 1 hour , or on phone a lot, at times he has extended phones conversations for work. Feels tight/tense. Hx of GERD. Use to take medication for. He is now taking otc pepcid without improvement Denies coughing, retrosternal burning/pressure, MORIN, facial tenderness, ear pressure, rhinitis, difficulty swallowing His medications were reviewed today and his list is now up to date. He is compliant on taking his medications :N/A He is tolerating his medication(s) without side effects: N/A He is following an appropriate diet for his medical problems: Yes He is getting some exercise in? Yes Social History Tobacco Use Smoking status: Never Smokeless tobacco: Never Substance Use Topics Alcohol use: No Drug use: No REVIEW OF SYSTEMS: Problems with vision? No Problems with hearing? No Chest pains? No Shortness of breath? No Changes in bowel function? No Changes in urination? No Changes in mood? No PHYSICAL EXAMINATION: BP 108/64 Pulse 90 Wt 71.1 kg (156 lb 12 oz) SpO2 99% BMI 21.26 kg/m? BMI 21.26 kg/(m2) General appearance: Well appearing, alert, in no acute distress, well-hydrated, well nourished. Skin: Skin color, texture, turgor normal, no suspicious rashes or lesions Head: Normocephalic, no masses, lesions, tenderness or abnormalities Eyes: Anicteric sclera. Pupils are equally round and reactive to light. Extraocular movements are intact. Ears: External ears normal, canals clear Nose/Sinuses: Nares normal, septum midline, mucosa normal, no drainage or sinus tenderness Oropharynx: Lips, mucosa, and tongue normal, teeth and gums normal, oropharynx normal Neck: Supple, no adenopathy; thyroid symmetric, normal size, no bruits Lungs: Lungs clear to auscultation. No wheezing, rhonchi, rales. Heart: RRR without murmur, gallop, or rubs. No ectopy Abdomen: Normal abdominal exam, Abdomen soft, non-tender. Bowel sounds normal. No masses, organomegaly. Extremities: No deformities, edema, skin discoloration, clubbing or cyanosis. ASSESSMENT/PLAN: 1. Routine physical examination - ICD9: V70.0, ICD10: Z00.00 (primary diagnosis) - Counseled on healthy diet and regular exercise - Follow up for annual exam in one year - LIPID PANEL BASIC - BASIC METABOLIC PANEL 2. Screening for depression - ICD9: V79.0, ICD10: Z13.31 - DEPRESSION SCREENING 3. Encounter for screening examination for other mental health and behavioral disorders - ICD9: V79.8, ICD10: Z13.39 - ANXIETY SCREENING 4. Encounter for immunization - ICD9: V03.89, ICD10: Z23 - TDAP VACCINE, AGE 7+ YR (ADACEL, BOOSTRIX) 5. Screening for thyroid disorder - ICD9: V77.0, ICD10: Z13.29 - THYROID STIMULATING HORMONE 6. Screening for diabetes mellitus - ICD9: V77.1, ICD10: Z13.1 - BASIC METABOLIC PANEL 7. Screening for cholesterol level - ICD9: V77.91, ICD10: Z13.220 - LIPID PANEL BASIC 8. Gastroesophageal reflux disease, unspecified whether esophagitis present - ICD9: 530.81, ICD10: K21.9 - Discussed lifestyle modifications including losing weight, limiting caffeine, no meals three hours before sleep, and head of bed elevation - Begin treatment with Pantoprazole QD 9. Voice hoarseness - ICD9: 784.42, ICD10: R49.0 - will treat for GERD, d/t hx of - if no improvement within 2-4 weeks will refer to ENT Giovanny Lu APRN.CNP Allergies As of Date: 05/30/2024 (No Known Allergies) Date Reviewed: 05/30/2024 Reviewed by: Giovanny Lu APRN.MANAGED CARE SPECIALIST - Fully Assessed Reason for Visit: Yearly Exam [187] Primary Visit Diagnosis:Routine physical examination [Z00.00] Other Visit Diagnoses:Screening for depression [Z13.31] Encounter for screening examination for other mental health and behavioral disorders [Z13.39] Encounter for immunization [Z23] Screening for thyroid disorder [Z13.29] Screening for diabetes mellitus [Z13.1] Screening for cholesterol level [Z13.220] Gastroesophageal reflux disease, unspecified whether esophagitis present [K21.9] Voice hoarseness [R49.0] Order(s):LIPID PANEL BASIC [SQLIPB] Order #: [id number] FUTURE pantoprazole DR (PROTONIX) 40 (more content not included)... Normal [facility] Vital Signs Date Time Vital Sign Value Performing Clinician Cherie shields 09-25-2024 07:34-0500 Body height 182.9 cm [facility] Work Phone: [facility] 09-25-2024 07:34-0500 Body mass index (BMI) [Ratio] 21.92 kg/m2 [facility] Work Phone: [facility] 09-25-2024 07:34-0500 Body temperature 97.9 [degF] [facility] [place] Work Phone: [facility] 09-25-2024 07:34-0500 Body weight 73.3 kg [facility] Work Phone: [facility] 09-25-2024 07:34-0500 Diastolic blood pressure 76 mm[Hg] [facility] [place] Work Phone: [facility] 09-25-2024 07:34-0500 Heart rate 73 /min [facility] [place] Work Phone: [facility] 09-25-2024 07:34-0500 Respiratory rate 16 /min [facility] [place] Work Phone: [facility] 09-25-2024 07:34-0500 SaO2% (BldA) [Mass fraction] 100 % [facility] Work Phone: [facility] 09-25-2024 07:34-0500 Systolic blood pressure 118 mm[Hg] [facility] Work Phone: [facility] 12-14-2022 12:56-0500 Body height 182.9 cm Jeanmarie SIERRA-David Work Phone: [facility] 12-14-2022 12:56-0500 Body temperature 98.6 [degF] Jeanmarie SIERRA-C Work Phone: [facility] 12-14-2022 12:56-0500 Body weight 65.77 kg Jeanmarie Edge PA-C Work Phone: [facility] Encounters Encounter Date Encounter Type Care Provider Facility Start: 12-27-2024 End: 12-27-2024 [facility] Facility:[facility] Start: 12-27-2024 End: 12-27-2024 Patient encounter procedure Kia Ramsey MD Work Phone: Otolaryngology Comment on above: Vocal cord polyp (Pr imary Dx); Vocal fold nodule; Dysphonia; LPRD (laryngopharyngeal reflux disease) Start: 10-19-2024 End: 10-29-2024 Telephone encounter Shaina Mejía [facility]SM[employer] MAINTENANCE SUPERVISOR Work Phone: [facility] Comment on above: Letter (Asking for l bird to give employer to request to [employer] certified internetwork expert, please contact) Start: 10-19-2024 End: 10-19-2024 [facility] Facility:[facility] Start: 10-19-2024 End: 10-19-2024 Patient encounter procedure Kia Ramsey MD Work Phone: Otolaryngology Comment on above: Vocal cord polyp (Pr imary Dx); Vocal fold nodule; Dysphonia; LPRD (laryngopharyngeal reflux disease) Vocal fold polyp (Pr imary Dx); Vocal fold nodule; LPRD (laryngopharyngeal reflux disease); Dysphonia Start: 10-11-2024 End: 10-11-2024 [facility] Facility:[facility] Start: 09-25-2024 End: 09-25-2024 Admission to establishment [facility] Work Phone: Pre Anesthesia Start: 09-25-2024 End: 09-25-2024 [facility] Facility:[facility] Start: 09-25-2024 End: 09-25-2024 Anesthesia consultation [facility] Work Phone: Pre Anesthesia Comment on above: Preoperative examina tion (Primary Dx); Gastroesophageal reflux disease, unspecified whether esophagitis present Start: 09-25-2024 End: 09-25-2024 Preprocedural examination done [facility] Work Phone: [facility] Work Phone: Start: 08-08-2024 End: 08-08-2024 ambulatory V JERROD BOYTIM Facility:[facility] Start: 08-08-2024 End: 08-08-2024 Patient encounter procedure Kia Ramsey MD Work Phone: Otolaryngology Comment on above: Dysphonia (Primary D x); Vocal cord polyp; Vocal fold nodule; Preoperative examination; LPRD (laryngopharyngeal reflux disease) Start: 08-08-2024 End: 08-08-2024 Preprocedural examination done Kia Ramsey MD Work Phone: [facility] Start: 08-02-2024 End: 08-02-2024 ambulatory V [facility] Facility:[facility] Start: 08-02-2024 End: 08-02-2024 Patient encounter procedure Essence Smith APRN.CNP Work Phone: Otolaryngology Comment on above: Vocal cord polyp (Pr imary Dx); Dysphonia Start: 08-01-2024 End: 08-02-2024 Refill Giovanny Lu APRN.CNP Work Phone: [facility] Comment on above: Refill Request Start: 06-18-2024 End: 06-18-2024 Telephone encounter Giovanny Lu APRN.CNP Work Phone: [facility] Start: 06-15-2024 End: 06-15-2024 ambulatory V JERROD BOYTIM Facility:[facility] Start: 06-15-2024 Physical examination NA GUY [facility] Start: 06-12-2024 End: 06-12-2024 E-mail encounter from caregiver Giovanny Lu APRN.CNP Work Phone: [facility] Start: 06-12-2024 End: 06-12-2024 Follow-up encounter Giovanny Lu APRN.CNP Work Phone: [facility] Comment on above: loss of voice/ acid reflux followup Start: 05-30-2024 End: 05-30-2024 ambulatory V JERROD TOVAR Facility:[facility] Start: 12-14-2022 End: 12-14-2022 ambulatory Jeanmarie Edge JAYDON Work Phone: Telemedicine Comment on above: Acute non-recurrent sinusitis, unspecified location (Primary Dx) Start: 12-14-2022 End: 12-14-2022 Telemedicine consultation with patient Jeanmarie Minesh INTERIANO Work Phone: [facility] Procedures Date Procedure Procedure Detail Performing Clinician Start: 06-15-2024 Lipid 1996 panel - S nubia or Plasma Giovanny Lu APRN.CNP Work Phone: Start: 05-30-2024 Adult depression screening assessment Giovanny Lu APRN.CNP Work Phone: Start: 03-30-2016 Lipid 1996 panel - S nubia or Plasma Giovanny Lu APRN.CNP Work Phone: Plan of Treatment Date Care Activity Detail Author Start: 05-30-2034 Urine microalbumin profile [facility] Start: 06-15-2029 Lipid panel Lipid Screening [facility] Start: 05-30-2025 Anxiety Screening Anxiety Screening [facility] Start: 05-30-2025 Depression Screening Depression Screening [facility] Start: 05-30-2025 Hepatitis C screening Hepatitis C Screening [facility] Comment on above: Postponed from 2000 (Declined at t his time) Start: 05-30-2025 HIV screening HIV Screening [facility] Comment on above: Postponed from 2000 (Declined at t his time) Start: 12-27-2024 End: 12-27-2024 Patient encounter procedure 12/27/2024 8:00 AM EDT Office Visit Otolaryngology [address] [place] [address] Kia Ramsey MD [address] [place] [address] follow up Otolaryngology Comment on above: follow up Start: 11-29-2024 End: 11-29-2024 Patient encounter procedure 11/29/2024 8:00 AM EST Office Visit Otolaryngology [address] [place] [address] Shaina Mejía [facility]-TRANSMISSION MAINTENANCE SUPERVISOR [address] [place] [address] Follow up Otolaryngology Comment on above: Follow up Start: 11-02-2024 End: 11-02-2024 Patient encounter procedure 11/02/2024 1:30 PM EST Office Visit Otolaryngology [address] [place] [address] Kia Ramsey MD [address] [place] [address] post op Otolaryngology Comment on above: post op Start: 10-11-2024 End: 10-11-2024 Admission to same day surgery center 10/11/2024 9:05 AM EST - 10/11/2024 10:20 AM EST Surgery [facility] [address] [place] [address] Kia Ramsey MD [address] [place] [address] LARYNGOSCOPY, DIRECT, OPERATIVE, W/ OPERATING MICROSCOPE OR TELESCOPE,W/SUBMUCOSAL REMOVAL OF NON-NEOPLASTIC LESION OF VOCAL CORD; RECONSTRUCTION WITH LOCAL TISSUE FLAP(S) [facility] Comment on above: LARYNGOSCOPY, DIRECT, OPERATIVE, W/ OPER ATING MICROSCOPE OR TELESCOPE,W/SUBMUCOSAL REMOVAL OF NON-NEOPLASTIC LESION OF VOCAL CORD; RECONSTRUCTION WITH LOCAL TISSUE FLAP(S) Start: 10-11-2024 End: 10-11-2024 Largsc micro/telescope rmvl les vocal cord flap LARYNGOSCOPY, DIRECT, OPERATIVE, W/ OPERATING MICROSCOPE OR TELESCOPE,W/SUBMUCOSAL REMOVAL OF NON-NEOPLASTIC LESION OF VOCAL CORD; RECONSTRUCTION WITH LOCAL TISSUE FLAP(S) Dysphonia 10/11/2024 9:05 AM EST [facility] Start: 10-11-2024 Subsequent hospital visit by physician 10/11/2024 9:05 AM EST Hospital Encounter [facility] [address] [place] [address] Kia Ramsey MD [address] [place] [address] Dysphonia [R49.0] [facility] Comment on above: Dysphonia [R49.0] Start: 08-08-2024 End: 08-08-2024 Patient encounter procedure 08/08/2024 8:40 AM EDT Office Visit Otolaryngology [address] [address] Kia Ramsey MD [address] [place], [place] [id number] bessie Smith Ot[facility]aryng[facility] Comment on above: bessie Smith Start: 06-10-2024 Covid-19 Vaccine ( season) Covid-19 Vaccine ( season) [facility] Start: 06-10-2024 Covid-19 Vaccine ( season) Covid-19 Vaccine ( season) [facility] Start: 06-10-2024 Influenza vaccination Influenza Vaccine (#1) [facility] Start: 10-10-2022 DEPRESSION ASSESSMENT DEPRESSION ASSESSMENT [facility] Start: 06-10-2022 Influenza vaccination INFLUENZA (#1) [facility] Start: 03-30-2021 Lipid panel Lipid Screening [facility] Start: 03-30-2021 LIPID SCREEN LIPID SCREEN [facility] Start: 2001 Hepatitis B Vaccine (1 of 3 - 19+ 3-dose series) Hepatitis B Vaccine (1 of 3 - 19+ 3-dose series) [facility] Start: 2001 Urine microalbumin profile DTAP,TDAP,TD (1 - Tdap) [facility] Start: 2000 HEPATITIS C SCREENING HEPATITIS C SCREENING [facility] Start: 2000 HIV SCREENING HIV SCREENING [facility] Start: 1982 COVID-19 VACCINE (#1) COVID-19 VACCINE (#1) [facility] Start: 1982 HEPATITIS B (1 of 3 - 3-dose series) HEPATITIS B (1 of 3 - 3-dose series) [facility] Largsc micro/telesco pe rmvl les vocal cord flap LARYNGOSCOPY, DIRECT, OPERATIVE, W/ OPERATING MICROSCOPE OR TELESCOPE,W/SUBMUCOSAL REMOVAL OF NON-NEOPLASTIC LESION OF VOCAL CORD; RECONSTRUCTION WITH LOCAL TISSUE FLAP(S) Dysphonia [facility] Immunizations Immunization Date Immunization Notes Care Provider Fa marcus 05-30-2024 tetanus toxoid, redu diego diphtheria toxoid, and acellular pertussis vaccine, adsorbed Giovanny Lu APRN.MANAGED CARE SPECIALIST Work Phone: [facility] Payers Date Payer Category Payer Private Health Insurance MMO SUP [employer] PPO [id number] 2019 Unknown MMO MMO SUPER[employer] PPO [id number] 2019-Present [phone] [address] [place] [address] PPO [id number] 2019 Unknown [id number] Social History Date Type Detail Facility Start: 01-25-2018 End: 12-27-2024 Tobacco smoking status NHIS Never smoked tobacco [facility] Start: 01-25-2018 End: 12-27-2024 Tobacco use and exposure Smokeless tobacco non-user [facility] Start: 11-27-2019 End: 12-27-2024 Alcohol intake Current non-drinker of alcohol (finding) [facility] Start: 1980 Sex Assigned At Not on file [facility] Start: 05-30-2024 End: 12-27-2024 History of Social function [facility] Start: 05-30-2024 End: 12-27-2024 Tobacco use panel [facility] Adult Depression Screening Assessment 0 [facility] NEGATED: Highlighted rowStart: [place] History of tobacco use Passive smoker [facility] Functional Status Date Assessment Result Facility 03-25-2015 Are you deaf, or do you have serious difficulty hearing No 03/25/2015 6:34 PM EDT Suad Mcmanus Ma [facility] 03-25-2015 Are you blind, or do you have serious difficulty seeing, even when wearing glasses No 03/25/2015 6:34 PM EDT Suad Mcmanus Ma [facility] 03-25-2015 Do you have serious difficulty walking or climbing stairs No 03/25/2015 6:34 PM EDT Suad Mcmanus Ma [facility] 03-25-2015 Do you have difficul ty dressing or bathing No 03/25/2015 6:34 PM EDT Suad Mcmanus Ma [facility] 03-25-2015 Because of a physica l, mental, or emotional condition, do you have difficulty doing errands alone such as visiting a physician's office or shopping No 03/25/2015 6:34 PM EDT Suad Mcmanus Ma [facility] Mental Status Date Assessment Result Facility 03-25-2015 Because of a physica l, mental, or emotional condition, do you have serious difficulty concentrating, remembering, or making decisions No 03/25/2015 6:34 PM EDT Suad Mcmanus Ma [facility] Clinical Notes 12-14-2022 to 12-27-2024 Kia Ramsey MD - 12/27/2024 7:59 AM ODELLTCarla Acosta MA - 12/27/2024 7:55 AM EDTTelephone Encounter - Padmini Bai LPN - 10/25/2024 3:54 PM ESTPatient InstructionsPatient Instructions Note Date & Type Note Facility 12-27-2024 Note HNO ID: [id number] Author: KIA RAMSEY MD Service: ? 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 He feels that he is completely back to normal. 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 He will consider a couple of singing lessons. On stroboscopy, his larynx is essentially normal with normal vibration and pliability. At this poit he will use his voice normally and will see me back as needed. He was treated for reflux around the time of surgery but over the past couple of weeks has weaned from the pantoprazole and is not having any symptoms so he will use only as needed HPI: History of vocal polyp and nodule Surgery 10/11/24: Procedure(s): Direct microlaryngoscopy with microflap excision of right true vocal fold nodule Direct microlaryngoscopy with microflap excision of left true vocal fold polyp Direct microlaryngoscopy with bilateral true vocal fold subepithelial decadron injection Operative indications: Raymond Araujo is a 44 year old male with dysphonia. Exam in clinic showed a left vocal fold polyp and an opposing right contact nodule. He was recommended to undergo direct microlaryngoscopy and excision of the lesions. Risks and benefits were discussed and he elected to proceed. Anesthesia: General Findings: Easy exposure with dedo laryngoscope. Good tolerance of THRIVE, did not require intubation for the duration of the case Left true vocal fold polyp, easily elevated Right true vocal fold contact nodule. Easily elevated from vocal ligament with injection. Prior to Excision: Post Excision: Note from Shaina mejía on 10/19: IMPRESSION AND PLAN Consultation requested by Dr. Ramsey for evaluation and recommendations regarding management of dysphonia in [facility]. Raymond Araujo is a 44 year old patient. He is s/p excision of polyp and nodule with Dr. Ramsey on 11/10/23. He presents today for post-op follow up. The patient reports he was compliant with 3-4 days of total voice rest and has been using his voice minimally since this time. 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 Videostroboscopy performed today by Dr. Ramsey demonstrated good healing of the vocal folds with minimal inflammation of the left cord. Perceptually the patient's voice is resonant with minimal strain or breathiness. The patient was introduced to post-op voice guidelines and instructed in straw phonation. He will continue with virtual work format for one more week to minimize voice use AND then monitor voice use upon in-person return. He will avoid singing until 6+ weeks from procedure. The patient is scheduled to see me in November for voice therapy follow-up to target any lingering voice complaints. Prognosis is good. Goals: Patient will maintain adequate voice hygiene regimen for at least 3 consecutive sessions. Patient will report improved functional voice outcomes, as measured by ability to fulfill daily voice demands without issue, across 3 consecutive sessions. Patient will utilize oral resonance-based tasks to achieve tonal clarity with 80% accuracy at the conversational level and during dynamic voice use independently. Patient will independently utilize cough/throat clear suppression strategies in 8 out of 10 opportunities. FINAL DIAGNOSIS A. Left vocal cord mass, biopsy: - Vocal cord nodule. B. Right vocal cord mass, biopsy: - Minute fragments of superficial squamous epithelium. ALLERGIES Allergen Reactions Seasonal Allergies Other: See Comments Sneeze,runny nose Current Outpatient Medications Medication Sig polyethylene glycol 3350 (MIRALAX ORAL) Take by mouth once daily. Magnesium Oxide 500 mg magnesium tab Take by mouth once daily. L.acidophilus-L.rhamnosus (PROBIOTIC) 15 billion cell capsule Take 1 capsule by mouth once daily. (Patient not taking: Reported on 12/27/2024) pantoprazole DR (PROTONIX) 40 mg tablet Take 1 tablet by mouth once daily. (Patient not taking: Reported on 12/27/2024) No current facility-administered medications for this visit. PAST MEDICAL HISTORY Diagnosis Date GERD (gastroesophageal reflux disease) Seasonal allergies PAST SURGICAL HISTORY Procedure Laterality Date NONE Social History: Social History Tobacco Use Smoking status: Never Passive exposure: Never Smokeless tobacco: Never Vaping Use Vaping status: Never Used Substance Use Topics Alcohol use: No Drug use: No PHYSICAL EXAM: On physical examinatio (more content not included)... [facility] 12-27-2024 History of Presen t illness Narrative Images from the original note were not included. 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 He feels that he is completely back to normal. 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 He will consider a couple of singing lessons. On stroboscopy, his larynx is essentially normal with normal vibration and pliability. At this poit he will use his voice normally and will see me back as needed. He was treated for reflux around the time of surgery but over the past couple of weeks has weaned from the pantoprazole and is not having any symptoms so he will use only as needed HPI: History of vocal polyp and nodule Surgery 10/11/24: Procedure(s): Direct microlaryngoscopy with microflap excision of right true vocal fold nodule Direct microlaryngoscopy with microflap excision of left true vocal fold polyp Direct microlaryngoscopy with bilateral true vocal fold subepithelial decadron injection Operative indications: Raymond Araujo is a 44 year old male with dysphonia. Exam in clinic showed a left vocal fold polyp and an opposing right contact nodule. He was recommended to undergo direct microlaryngoscopy and excision of the lesions. Risks and benefits were discussed and he elected to proceed. Anesthesia: General Findings: Easy exposure with dedo laryngoscope. Good tolerance of THRIVE, did not require intubation for the duration of the case Left true vocal fold polyp, easily elevated Right true vocal fold contact nodule. Easily elevated from vocal ligament with injection. Prior to Excision: Post Excision: Note from Shaina mejía on 10/19: IMPRESSION AND PLAN Consultation requested by Dr. Ramsey for evaluation and recommendations regarding management of dysphonia in [facility]. Raymond Araujo is a 44 year old patient. He is s/p excision of polyp and nodule with Dr. Ramsey on 11/10/23. He presents today for post-op follow up. The patient reports he was compliant with 3-4 days of total voice rest and has been using his voice minimally since this time. 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 Videostroboscopy performed today by Dr. Ramsey demonstrated good healing of the vocal folds with minimal inflammation of the left cord. Perceptually the patient's voice is resonant with minimal strain or breathiness. The patient was introduced to post-op voice guidelines and instructed in straw phonation. He will continue with virtual work format for one more week to minimize voice use & then monitor voice use upon in-person return. He will avoid singing until 6+ weeks from procedure. The patient is scheduled to see me in November for voice therapy follow-up to target any lingering voice complaints. Prognosis is good. Goals: Patient will maintain adequate voice hygiene regimen for at least 3 consecutive sessions. Patient will report improved functional voice outcomes, as measured by ability to fulfill daily voice demands without issue, across 3 consecutive sessions. Patient will utilize oral resonance-based tasks to achieve tonal clarity with 80% accuracy at the conversational level and during dynamic voice use independently. Patient will independently utilize cough/throat clear suppression strategies in 8 out of 10 opportunities. FINAL DIAGNOSIS A. Left vocal cord mass, biopsy: - Vocal cord nodule. B. Right vocal cord mass, biopsy: - Minute fragments of superficial squamous epithelium. ALLERGIES Allergen Reactions Seasonal Allergies Other: See Comments Sneeze,runny nose Current Outpatient Medications Medication Sig polyethylene glycol 3350 (MIRALAX ORAL) Take by mouth once daily. Magnesium Oxide 500 mg magnesium tab Take by mouth once daily. L.acidophilus-L.rhamnosus (PROBIOTIC) 15 billion cell capsule Take 1 capsule by mouth once daily. (Patient not taking: Reported on 12/27/2024) pantoprazole DR (PROTONIX) 40 mg tablet Take 1 tablet by mouth once daily. (Patient not taking: Reported on 12/27/2024) No current facility-administered medications for this visit. PAST MEDICAL HISTORY Diagnosis Date GERD (gastroesophageal reflux disease) Seasonal allergies PAST SURGICAL HISTORY Procedure Laterality Date NONE Social History: Social History Tobacco Use Smoking status: Never Passive exposure: Never Smokeless tobacco: Never Vaping Use Vaping status: Never Used Substance Use Topics Alcohol use: No Drug use: No PHYSICAL EXAM: On physical examination Raymond Araujo is a well-developed, well nourished male. The voice is normal. Cranial nerves II-XII are grossly intact Mental status revealed patient to be alert and oriented. Mood is appropriate. Details of the physical examination: HEAD AND FACE: Physical examination of the head, neck, external nose, external ears, mouth and face fails to demonstrate any significant abnormality or asymmetry to critical face to face observation. Skin and scalp are normal. ORAL CAVITY/OROPHARYNX: No masses or lesions LARYNX: Recommend flexible laryngoscopy with stroboscopy NECK: No adenopathy VHI (original/full) Patient Entered Questionnaires 08/07/2024 10/12/2024 12/27/2024 Voice Handicap Index Score Physical Score 20 25 11 Functional Score 19 21 5 Emotional Score 19 22 3 VHI Total Score 58 68 19 CHARTS REVIEWED: last note and strobe, note from Shaina Mejía, operative report and pathology Kia Ramsey MD PROCEDURE NOTE: Recommended Videostroboscopy. Risks, benefits and alternatives were explained. The patient wished to proceed he was reidentified and a time out obtained. PROCEDURE: Videostroboscopy PREOPERATIVE DIAGNOSIS: vocal polyp, nodule POSTOPERATIVE DIAGNOSIS: same INDICATIONS: Evaluation larynx to:evaluate lesion, assess vibratory margin, and postoperative assessment The results of the examination were reviewed with the patient. ANESTHESIA: Lidocaine 2% and Juice-Synephrine % PROCEDURE: With the patient sitting upright, a flexible scope was used : Topical anesthesia and vasoconstriction was applied with spray to the right and left side(s) of the nose. After waiting an appropriate period of time for anesthesia/vasoconstriction to become effective, a flexible laryngoscope was passed through the left side(s) of the nose. Nasopharynx was normal. FINDINGS: The nasopharynx was normal without any lesions or masses visualized. No masses or lesions were visualized at the base of tongue, vallecula, epiglottis, aryepiglottic folds, pyriform sinuses, and lateral pharyngeal hsu. True vocal fold movement was intact bilaterally. No lesions visualized. Mucosal wave was noted to be present and equal bilaterally. Amplitude was normal. Closure was complete. Phase symmetry was Present The patient's airway was widely patent with no evidence of obstruction. Pt tolerated the procedure well, and there were no complications. The procedure was performed by Dr. Ramsey. Kia Ramsey MD Medical Decision Making: Problems: Low: Acute, uncomplicated illness or injury Data: Unique source(s) for external note(s) reviewed: 1 Unique test result(s) reviewed: 3+ Medical Decision Making Level: 3 - Low Patient Entered Questionnaires 08/07/2024 10/12/2024 12/27/2024 Voice Handicap Index Score Physical Score 20 25 11 Functional Score 19 21 5 Emotional Score 19 22 3 Total Score 58 68 19 08/07/2024 10/12/2024 12/27/2024 Voice Handicap Index Score Physical Score 20 25 11 Functional Score 19 21 5 Emotional Score 19 22 3 VHI Total Score 58 68 19 documented in this encounter [facility] 12-27-2024 Note HNO ID: [id number] Author: CARLA ACOSTA MA Service: ? Author Type: Buck Presser Type: Progress Notes Filed: 12/27/2024 08:19 Note Text: Patient Entered Questionnaires 08/07/2024 10/12/2024 12/27/2024 Voice Handicap Index Score Physical Score 20 25 11 Functional Score 19 21 5 Emotional Score 19 22 3 Total Score 58 68 19 08/07/2024 10/12/2024 12/27/2024 Voice Handicap Index Score Physical Score 20 25 11 Functional Score 19 21 5 Emotional Score 19 22 3 VHI Total Score [address] [facility] 10-25-2024 Telephone encounter Note Spoke with provider. Left detailed voicemail . Will close encounter. [facility] 10-25-2024 Miscellaneous Notes Spoke with provider. Left detailed voicemail . Will close encounter. Per provider, called patient and left message r/t below Also wants to know if he could get Rx for nebulizer,please advise. Luh Isaacs Raymond is calling ZEINAB RenTRANSMISSION MAINTENANCE SUPERVISOR today to request Letter (Asking for letter to give employer to request to [employer] certified internetwork expert, please contact) Patient has been identified by name and birthdate. Duration of symptoms: N/A Person calling: self Call patient at: on cell [phone] (home) [phone] (cell) Was an appointment scheduled: No Closing statement: Results or non-symptom based questions: Thank you for calling [facility], your call will be returned within the next business day. Luh Isaacs documented in this encounter [facility] 10-22-2024 Telephone encounter Note Per provider, called patient and left message r/t below [facility] 10-19-2024 Telephone encounter Note Also wants to know if he could get Rx for nebulizer,please advise. Luh Isaacs [facility] 10-19-2024 Telephone encounter Note Raymond is calling KEVIN Ren today to request Letter (Asking for letter to give employer to request to [employer] certified internetwork expert, please contact) Patient has been identified by name and birthdate. Duration of symptoms: N/A Person calling: self Call patient at: on cell [phone] (home) [phone] (cell) Was an appointment scheduled: No Closing statement: Results or non-symptom based questions: Thank you for calling [facility], your call will be returned within the next business day. Luh Isaacs [facility] 10-19-2024 Note HNO ID: [id number] Author: SHAINA MEJÍA, CCC-TRANSMISSION MAINTENANCE SUPERVISOR Service: ? Author Type: Speech Language Pathologist Type: Progress Notes Filed: 10/19/2024 10:18 Note Text: [facility] Shaina Mejía M.A., CCC-TRANSMISSION MAINTENANCE SUPERVISOR NAME: Raymond Araujo DATE OF SERVICE: October 19, 2024 Onset of Illness: 08/08/2022 Initial Day of Treatment: October 19, 2024 Treatment Plan Date: October 19, 2024 IMPRESSION AND PLAN Consultation requested by Dr. Ramsey for evaluation and recommendations regarding management of dysphonia in [facility]. Raymond Araujo is a 44 year old patient. He is s/p excision of polyp and nodule with Dr. Ramsey on 11/10/23. He presents today for post-op follow up. The patient reports he was compliant with 3-4 days of total voice rest and has been using his voice minimally since this time. 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 Videostroboscopy performed today by Dr. Ramsey demonstrated good healing of the vocal folds with minimal inflammation of the left cord. Perceptually the patient's voice is resonant with minimal strain or breathiness. The patient was introduced to post-op voice guidelines and instructed in straw phonation. He will continue with virtual work format for one more week to minimize voice use AND then monitor voice use upon in-person return. He will avoid singing until 6+ weeks from procedure. The patient is scheduled to see me in November for voice therapy follow-up to target any lingering voice complaints. Prognosis is good. Goals: Patient will maintain adequate voice hygiene regimen for at least 3 consecutive sessions. Patient will report improved functional voice outcomes, as measured by ability to fulfill daily voice demands without issue, across 3 consecutive sessions. Patient will utilize oral resonance-based tasks to achieve tonal clarity with 80% accuracy at the conversational level and during dynamic voice use independently. Patient will independently utilize cough/throat clear suppression strategies in 8 out of 10 opportunities. 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 Pitch: WNL. Intonation: WNL. Volume: intentionally reduced Resonance: WNL. Articulation: WNL. Fluency: WNL. Rate: WNL BEHAVIORAL VOICE ASSESSMENT Phonotraumatic behaviors: WNL Job requires increased voice demands: Yes. Cough/Throat Clear: None Questionnaires: VHI (original/full) Patient Entered Questionnaires 07/30/2024 08/07/2024 10/12/2024 Voice Handicap Index Score Physical Score 20 20 25 Functional Score 20 19 21 Emotional Score 20 19 22 VHI Total Score 60 58 68 VIDEOSTROBOSCOPY PROCEDURE Procedure performed by Dr. Ramsey today. Please see his note for full report. Shaina Mejía M.A., [facility]-TRANSMISSION MAINTENANCE SUPERVISOR Speech Language Pathologist [facility] 10-19-2024 History of Presen t illness Narrative [facility] Shaina Mejía M.A., CCC-TRANSMISSION MAINTENANCE SUPERVISOR NAME: Raymond Araujo DATE OF SERVICE: October 19, 2024 Onset of Illness: 08/08/2022 Initial Day of Treatment: October 19, 2024 Treatment Plan Date: October 19, 2024 IMPRESSION AND PLAN Consultation requested by Dr. Ramsey for evaluation and recommendations regarding management of dysphonia in [facility]. Raymond Araujo is a 44 year old patient. He is s/p excision of polyp and nodule with Dr. Ramsey on 11/10/23. He presents today for post-op follow up. The patient reports he was compliant with 3-4 days of total voice rest and has been using his voice minimally since this time. 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 Videostroboscopy performed today by Dr. Ramsey demonstrated good healing of the vocal folds with minimal inflammation of the left cord. Perceptually the patient's voice is resonant with minimal strain or breathiness. The patient was introduced to post-op voice guidelines and instructed in straw phonation. He will continue with virtual work format for one more week to minimize voice use & then monitor voice use upon in-person return. He will avoid singing until 6+ weeks from procedure. The patient is scheduled to see me in November for voice therapy follow-up to target any lingering voice complaints. Prognosis is good. Goals: Patient will maintain adequate voice hygiene regimen for at least 3 consecutive sessions. Patient will report improved functional voice outcomes, as measured by ability to fulfill daily voice demands without issue, across 3 consecutive sessions. Patient will utilize oral resonance-based tasks to achieve tonal clarity with 80% accuracy at the conversational level and during dynamic voice use independently. Patient will independently utilize cough/throat clear suppression strategies in 8 out of 10 opportunities. 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 Pitch: WNL. Intonation: WNL. Volume: intentionally reduced Resonance: WNL. Articulation: WNL. Fluency: WNL. Rate: WNL BEHAVIORAL VOICE ASSESSMENT Phonotraumatic behaviors: WNL Job requires increased voice demands: Yes. Cough/Throat Clear: None Questionnaires: VHI (original/full) Patient Entered Questionnaires 07/30/2024 08/07/2024 10/12/2024 Voice Handicap Index Score Physical Score 20 20 25 Functional Score 20 19 21 Emotional Score 20 19 22 VHI Total Score 60 58 68 VIDEOSTROBOSCOPY PROCEDURE Procedure performed by Dr. Ramsey today. Please see his note for full report. Shaina Mejía M.A., CCC-TRANSMISSION MAINTENANCE SUPERVISOR Speech Language Pathologist [facility] documented in this encounter [facility] 10-19-2024 Instructions Shaina Mejía CCC-TRANSMISSION MAINTENANCE SUPERVISOR - 10/19/2024 9:00 AM EST You can contact me at my work phone [phone] Siddiqui Post-op voice use: ~Voice rest after surgery is usually 3 to 5 days, but could be longer as recommended by your doctor. No whispering. You may need a white erase board and [id number]-[id number] options for your phone. You will have the urge to cough at this point. Chloraseptic or Robitussin is fine to use. You can eat and drink normally. Cold liquids and popsicles are fine if that feels good. Recommendations for Voice Care after Vocal Fold Surgery: Post op day 0 to day 4: DO NOT TALK AT ALL Write, text, email. Try to avoid laughing loudly or coughing No lifting heavy items. No smoking of any substance Text to speech zee on phone Day 4 to Day 7: After your defined period of voice rest start talking slowly and gradually. 1- 5 minutes per hour. Pace and space your voice use. Still stay very quiet; no yelling, screaming, hollering across the house. Stay close to your conversational partner and make sure they have your attention. You may find over-articulation helpful. No whispering. Start using the straw for voice exercises 4 times a day for a few minutes. Hold comfortable notes and gentle pitch glides. Day 7 to Day 14: Talk at low volume, for up to 10 minutes per hour. Do not raise your voice, talk loudly, yell, or talk for long. Continue with voice use through gentle straw exercises daily. Day 14 to 21 Up to 15 mins per hour of voice use. Talking gently for longer times. Still no loud voice use, yelling, singing, or talking too long. If voice feels too rough or strained, do less Day 21 onward: If it feels ok, do more talking gradually No yelling, loud talking or singing for up to 6 weeks after surgery. If it does not feel right, call us for a follow up. *Use straw phonation 1-2 minutes 5-6 times a day throughout the healing process (after the first 4 days of complete voice rest)* Straw Phonation: wrap your lips around the straw and make noise into the straw. The sound should be buzzy with gentle airflow on your hand. Focus on where you feel sensation, with vibration at the lips (like a kazoo). Hold sustained sounds and glides up/down in a small vocal range. Coughing and throat clearing suppression (both slam your vocal cords together and can be damaging to vocal folds after surgery): Hard swallow: Swallow hard with effort. You can do this with just your saliva or small sips of water. Sniff and Blow Breath: Sniff in through the nose, out through the mouth. Alternatively, you can sniff through the nose then round the lips and pulse the exhalation. Sniff and Hiss: sniff in through the nose, his out on sssss sound, like a snake. Alternatively, you can sniff through the nose and use a pulsed hiss on exhalation. Straw Breath: Breathe in and out through rounded lips. Other helpful items: Gargle with seltzer water: 5 gargles of sparkling water. Gargle back and spit out. 2-3x/day or as needed. Non-medicated lozenges: look for pectin-based lozenges, not menthol-based; something sugar free Cepacol Lozenges: numbing drops. Biotene products: gel or mouthwash. In the oral care aisle. Sipping water to increase hydration: Keep a small bottle of water with you & take small sips of water throughout the day. This keeps you swallowing & prevents coughing. documented in this encounter [facility] 10-19-2024 Note HNO ID: [id number] Author: KIA RAMSEY MD Service: ? 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 He is nearly healed but is aware that it will be 6 weeks or so before back to full voice. I will therefore get him in to see one of our voice pathologists to work with him on voice progression and hygiene. He is on reflux treatment and I would like him to stay on it during this healing period. I would like to see him back in 6-8 weeks HPI: Patient is S/P surgery on 11/10/24: Post-op Diagnosis: Bilateral True Vocal Fold Lesions Dysphonia Procedure(s): Direct microlaryngoscopy with microflap excision of right true vocal fold nodule Direct microlaryngoscopy with microflap excision of left true vocal fold polyp Direct microlaryngoscopy with bilateral true vocal fold subepithelial decadron injection Operative indications: Raymond Araujo is a 44 year old male with dysphonia. Exam in clinic showed a left vocal fold polyp and an opposing right contact nodule. He was recommended to undergo direct microlaryngoscopy and excision of the lesions. Risks and benefits were discussed and he elected to proceed. Anesthesia: General Findings: Easy exposure with dedo laryngoscope. Good tolerance of THRIVE, did not require intubation for the duration of the case Left true vocal fold polyp, easily elevated Right true vocal fold contact nodule. Easily elevated from vocal ligament with injection. Prior to Excision: Post Excision: FINAL DIAGNOSIS A. Left vocal cord mass, biopsy: - Vocal cord nodule. B. Right vocal cord mass, biopsy: - Minute fragments of superficial squamous epithelium ALLERGIES Allergen Reactions Seasonal Allergies Other: See Comments Sneeze,runny nose Current Outpatient Medications Medication Sig L.acidophilus-L.rhamnosus (PROBIOTIC) 15 billion cell capsule Take 1 capsule by mouth once daily. pantoprazole DR (PROTONIX) 40 mg tablet Take 1 tablet by mouth once daily. polyethylene glycol 3350 (MIRALAX ORAL) Take by mouth once daily. Magnesium Oxide 500 mg magnesium tab Take by mouth once daily. No current facility-administered medications for this visit. PAST MEDICAL HISTORY Diagnosis Date GERD (gastroesophageal reflux disease) Seasonal allergies PAST SURGICAL HISTORY Procedure Laterality Date NONE Social History: Social History Tobacco Use Smoking status: Never Smokeless tobacco: Never Vaping Use Vaping status: Never Used Substance Use Topics Alcohol use: No Drug use: No PHYSICAL EXAM: On physical examination Raymond Araujo is a well-developed, well nourished male. The voice is much better. Cranial nerves II-XII are grossly intact Mental status revealed patient to be alert and oriented. Mood is appropriate. Details of the physical examination: HEAD AND FACE: Physical examination of the head, neck, external nose, external ears, mouth and face fails to demonstrate any significant abnormality or asymmetry to critical face to face observation. Skin and scalp are normal. ORAL CAVITY/OROPHARYNX: No masses or lesions LARYNX: Recommend flexible laryngoscopy with stroboscopy NECK: No adenopathy VHI (original/full) Patient Entered Questionnaires 07/30/2024 08/07/2024 10/12/2024 Voice Handicap Index Score Physical Score 20 20 25 Functional Score 20 19 21 Emotional Score 20 19 22 VHI Total Score 60 58 68 CHARTS REVIEWED: operative report, images and pathology Kia Ramsey MD PROCEDURE NOTE: Recommended Videostroboscopy. Risks, benefits and alternatives were explained. The patient wished to proceed he was reidentified and a time out obtained. PROCEDURE: Videostroboscopy PREOPERATIVE DIAGNOSIS: vocal polyp and nodule POSTOPERATIVE DIAGNOSIS: same INDICATIONS: Evaluation larynx to:evaluate lesion, assess vibratory margin, and postoperative assessment The results of the examination were reviewed with the patient. ANESTHESIA: Lidocaine 2% and Juice-Synephrine ?% PROCEDURE: With the patient sitting upright, a flexible scope was used : Topical anesthesia and vasoconstriction was applied with spray to the right and left side(s) of the nose. After waiting an appropriate period of time for anesthesia/vasoconstriction to become effective, a flexible laryngoscope was passed through the right side(s) of the nose. Nasopharynx was normal. FINDINGS: The nasopharynx was normal without any lesions or masses visualized. No masses or lesions were visualized at the base of tongue, vallecula, epiglottis, aryepiglottic folds, pyriform sinuses, and (more content not included)... [facility] 10-19-2024 History of Presen t illness Narrative Images from the original note were not included. 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 He is nearly healed but is aware that it will be 6 weeks or so before back to full voice. I will therefore get him in to see one of our voice pathologists to work with him on voice progression and hygiene. He is on reflux treatment and I would like him to stay on it during this healing period. I would like to see him back in 6-8 weeks HPI: Patient is S/P surgery on 11/10/24: Post-op Diagnosis: Bilateral True Vocal Fold Lesions Dysphonia Procedure(s): Direct microlaryngoscopy with microflap excision of right true vocal fold nodule Direct microlaryngoscopy with microflap excision of left true vocal fold polyp Direct microlaryngoscopy with bilateral true vocal fold subepithelial decadron injection Operative indications: Raymond Araujo is a 44 year old male with dysphonia. Exam in clinic showed a left vocal fold polyp and an opposing right contact nodule. He was recommended to undergo direct microlaryngoscopy and excision of the lesions. Risks and benefits were discussed and he elected to proceed. Anesthesia: General Findings: Easy exposure with dedo laryngoscope. Good tolerance of THRIVE, did not require intubation for the duration of the case Left true vocal fold polyp, easily elevated Right true vocal fold contact nodule. Easily elevated from vocal ligament with injection. Prior to Excision: Post Excision: FINAL DIAGNOSIS A. Left vocal cord mass, biopsy: - Vocal cord nodule. B. Right vocal cord mass, biopsy: - Minute fragments of superficial squamous epithelium ALLERGIES Allergen Reactions Seasonal Allergies Other: See Comments Sneeze,runny nose Current Outpatient Medications Medication Sig L.acidophilus-L.rhamnosus (PROBIOTIC) 15 billion cell capsule Take 1 capsule by mouth once daily. pantoprazole DR (PROTONIX) 40 mg tablet Take 1 tablet by mouth once daily. polyethylene glycol 3350 (MIRALAX ORAL) Take by mouth once daily. Magnesium Oxide 500 mg magnesium tab Take by mouth once daily. No current facility-administered medications for this visit. PAST MEDICAL HISTORY Diagnosis Date GERD (gastroesophageal reflux disease) Seasonal allergies PAST SURGICAL HISTORY Procedure Laterality Date NONE Social History: Social History Tobacco Use Smoking status: Never Smokeless tobacco: Never Vaping Use Vaping status: Never Used Substance Use Topics Alcohol use: No Drug use: No PHYSICAL EXAM: On physical examination Raymond Araujo is a well-developed, well nourished male. The voice is much better. Cranial nerves II-XII are grossly intact Mental status revealed patient to be alert and oriented. Mood is appropriate. Details of the physical examination: HEAD AND FACE: Physical examination of the head, neck, external nose, external ears, mouth and face fails to demonstrate any significant abnormality or asymmetry to critical face to face observation. Skin and scalp are normal. ORAL CAVITY/OROPHARYNX: No masses or lesions LARYNX: Recommend flexible laryngoscopy with stroboscopy NECK: No adenopathy VHI (original/full) Patient Entered Questionnaires 07/30/2024 08/07/2024 10/12/2024 Voice Handicap Index Score Physical Score 20 20 25 Functional Score 20 19 21 Emotional Score 20 19 22 VHI Total Score 60 58 68 CHARTS REVIEWED: operative report, images and pathology Kia Ramsey MD PROCEDURE NOTE: Recommended Videostroboscopy. Risks, benefits and alternatives were explained. The patient wished to proceed he was reidentified and a time out obtained. PROCEDURE: Videostroboscopy PREOPERATIVE DIAGNOSIS: vocal polyp and nodule POSTOPERATIVE DIAGNOSIS: same INDICATIONS: Evaluation larynx to:evaluate lesion, assess vibratory margin, and postoperative assessment The results of the examination were reviewed with the patient. ANESTHESIA: Lidocaine 2% and Juice-Synephrine % PROCEDURE: With the patient sitting upright, a flexible scope was used : Topical anesthesia and vasoconstriction was applied with spray to the right and left side(s) of the nose. After waiting an appropriate period of time for anesthesia/vasoconstriction to become effective, a flexible laryngoscope was passed through the right side(s) of the nose. Nasopharynx was normal. FINDINGS: The nasopharynx was normal without any lesions or masses visualized. No masses or lesions were visualized at the base of tongue, vallecula, epiglottis, aryepiglottic folds, pyriform sinuses, and lateral pharyngeal hsu. True vocal fold movement was intact bilaterally. Minimal inflammation on the left.. Mucosal wave was noted to be present and equal bilaterally. Amplitude was normal. Closure was complete. Phase symmetry was Present The patient's airway was widely patent with no evidence of obstruction. Pt tolerated the procedure well, and there were no complications. The procedure was performed by Dr. Ramsey. Kia Ramsey MD documented in this encounter [facility] 09-25-2024 Instructions Venita Ann PA-C - 09/25/2024 7:43 AM EST Images from the original note were not included. [facility] PATIENT PREOPERATIVE INSTRUCTIONS [facility]: [phone] --[address], [place] [address]. Please read below carefully for your personalized instructions. Arrival Time for Surgery: - The Surgery Center or hospital where you are having surgery will call the afternoon before surgery (or Tuesday for Tuesday surgery) with a scheduled arrival time. - If you have not heard by 4 pm, please contact the surgery center above. Please be aware that emergency situations arise, which may delay or change your surgical time. If this happens, we will notify you as soon as possible and regret any inconvenience. Dietary Restrictions: - No solid food after midnight. - You may have 12 ounces of clear liquids (water, clear juices such as apple juice or gatorade, carbonated beverages, clear tea, black coffee, jello) until 2 hours before scheduled arrival at facility. - no milk/creamer or other additives like honey - no pulp juices Medications: Protonix If you start any new medications after today's visit, please contact the surgeon's office. Blood Thinning Medications: - Stop NSAIDS (Ibuprofen, Advil, Aleve, Motrin, Celebrex, Mobic, etc.) 7 days before surgery, as directed by your surgeon. - Stop Aspirin 7 days before surgery, as directed by your surgeon. - Stop ALL herbal and dietary supplements 7 days before surgery. - You may take Tylenol (Acetaminophen) or any of your pain medications that do not contain aspirin or NSAIDS as needed. Important Reminders: - Candy, mints, and tobacco products are NOT permitted the morning of surgery. - Hearing aids, dentures and glasses may be worn the morning of surgery. - NO jewelry, body piercings, makeup, hairpins or contacts are to be worn the day of surgery. If you develop symptoms such as a fever, cold, or flu, or have other changes to your health within TWO DAYS of scheduled surgery or the morning of surgery, please contact the surgery center above. Personal Belongings: -Please have photo ID and insurance cards. -If you do not have a copy of advance directives on file with us, please bring a copy with you on the day of surgery. - Leave ALL valuables and money at home or with family members. For Outpatient Procedures: - YOU MUST HAVE A RESPONSIBLE QA INTERNSHIP TAKE YOU HOME. A CLASS B DRIVER OR BUSINESS OFFICE TECHNICIAN CANNOT BE MADE A RESPONSIBLE QA INTERNSHIP. - We recommend that a responsible person stays with you overnight to take care of you. - You cannot stay in a hotel alone after outpatient surgery. You will not be permitted to have your surgery, if you do not have someone to take care of you. Please be aware that emergency situations arise, which may delay or change your surgical time. If this happens, we will notify you as soon as possible and regret any inconvenience. If you already have an Advance Directive, please fax a copy to [phone] or email to for it to be added to your chart. If you do not have an Advance Directive, you can find the appropriate form and more information at [email or web address]. We recommend that you complete the Advance Directive form found on the website and bring it with you the day of your surgery. It can be witnessed and scanned into your chart that day. Venita Ann PA-C documented in this encounter [facility] 09-25-2024 History and physical note Images from the original note were not included. [facility] HISTORY AND PHYSICAL EXAMINATION SERVICE DATE: 09/25/2024 SERVICE TIME: 7:37 AM PRIMARY CARE PHYSICIAN: Glory Tovar DO REASON FOR VISIT: Raymond Araujo is a 44 year old male who is scheduled for Bilateral - LARYNGOSCOPY, DIRECT, OPERATIVE, W/ OPERATING MICROSCOPE OR TELESCOPE,W/SUBMUCOSAL REMOVAL OF NON-NEOPLASTIC LESION OF VOCAL CORD; RECONSTRUCTION WITH LOCAL TISSUE FLAP(S) at the request of Dr. Ramsey for consultation. My final recommendation will be communicated back to the requesting physician by way of shared medical record or letter. Assessment Patient has the following medical conditions which may affect brodie-operative course: GERD (gastroesophageal reflux disease) Assessment: takes pantoprazole daily GERD (gastroesophageal reflux disease) Assessment: takes pantoprazole daily Joseph Activity Status Index: METS: Walk indoors, such as around the house (1.75 METs) Do light work around the house, such as dusting or washing dishes (2.70 METs) Take care of self; that is eating, dressing, bathing, using the toilet (2.75 METs) Walk a block or two on level ground (2.75 METs) Do moderate work around the house, such as vacuuming, sweeping floors, or carrying in groceries (3.50 METs) Do yardwork, such as raking leaves, weeding, or pushing a power mower (4.50 METs) Climb a flight of stairs or walk up a hill (5.50 METs) DASI Score: 23.45 Patient denies any chest pain or undue shortness of breath with the above physical activity. STOP-Bang Score: Snores loudly Has been observed to stop breathing or choking/gasping during sleep Male patient Denies feeling tired, fatigued, or sleepy during the daytime Denies having high blood pressure BMI less than or equal to 35 kg/m^2 Patient 50 years old or younger Does not have a large neck STOP-Bang Score: 3 [id number] Score: Age: <65 Sex: male CHF history: No Hypertension history: No Stroke/TIA/thromboembolism history: No Vascular disease history: No Diabetes history: No [id number] Score: 0 ANESTHESIA FINDINGS: Intubation History: No prior intubation Significant Anesthesia Considerations: has never had anesthesia Airway History: No prior intubation I - PHYSICAL EVALUATION AIRWAY Patient intubated: No. Tracheostomy tube not present Mallampati: I. TM distance: >3 FB. Neck ROM: full ROM without neurological symptoms. Mouth opening: adequate. Short neck: no. Thick neck: no Dennis present: no Microretrognathia/Micronagthia/R ecessed Chin: No DENTAL Dental findings: teeth intact. Additional comments: Caps/crowns. II - ANESTHESIA PLAN Beta Yolis Monitoring Plan Post Procedure Analgesic Plan Prepared for surgery: This patient is optimally prepared for surgery. CONSULTS: Patient does not require consults for optimization at this time. The Following Tests/Procedures Have Been Initiated: Labs not indicated per P[facility] protocol, EKG not indicated per [facility] protocol Planned Anesthetic: Per anesthesia choice Subjective CHIEF COMPLAINT: vocal cord polyp HPI: Raymond is a 44 y/o male who c/o hoarse voice x 2 years, that has worsened over the past 5 months. No recent illness, difficulty breathing or difficulty swallowing. He has been diagnosed with a vocal cord polyp and is scheduled for surgery on 10/11. REVIEW OF SYSTEMS: PAIN ASSESSMENT: General: No weight loss, malaise or fevers. Neuro: Negative for headaches, seizures, tremor or stroke Respiratory: Negative for cough, wheezing or shortness of breath. Negative for hemoptysis. Negative for sleep apnea. Cardiovascular: Negative for chest pain, orthopnea, PND, dizziness, lightheadedness or syncope. Negative for heart murmur. Negative for palpitations or arrhythmia. Negative for h/o DVT/PE. Negative for LE edema GI: Negative for abdominal pain, blood in the stool, black stools or change in bowel habits : No history of UTI in past 6 weeks. No history of renal failure. Not currently on or requiring dialysis. Negative for dysuria, hematuria, urgency, frequency or incontinence Endocrine: Negative for polyuria, polydipsia, heat or cold intolerance. Negative for goiter Hematology: No history of bleeding or clotting disorder. Pt is not taking anti-coagulation or platelet medications. No history of hematological symptoms or problems. Oncology: No history of CA metastasis, chemo within 30 days, or radiotherapy within 90 days. Has not lost 10% of body wt in 6 months. No history of oncological symptoms or problems. Psych: No history of psychiatric symptoms or problems. Marijuana use: No Musculoskeletal: Negative for joint pain or swelling, back pain or muscle pain. Skin: Negative for lesions, rash and itching. Implanted Devices: No The patient has the following: ACTIVE PROBLEM LIST Internal Hemorrhoids Fatigue Seasonal Allergies Gerd (Gastroesophageal Reflux Disease) Covid Immunization Dates Overdue - Covid-19 Vaccine ( season) Never done No completion, postpone, frequency change, or communication history exists for this topic. PAST MEDICAL HISTORY Diagnosis Date GERD (gastroesophageal reflux disease) Seasonal allergies PAST SURGICAL HISTORY Procedure Laterality Date NONE FAMILY HISTORY Problem Relation Age of Onset Thyroid Mother Hypertension Mother other (vitiligo) Father None Sister None Brother None Brother None Brother Cancer Maternal Grandmother Social History Tobacco Use Smoking status: Never Smokeless tobacco: Never Vaping Use Vaping status: Never Used Substance Use Topics Alcohol use: No Drug use: No Prior to Admission medications as of 09/25/24 0753 Medication Sig Last Dose Taking L.acidophilus-L.rhamnosus (PROBIOTIC) 15 billion cell capsule Take 1 capsule by mouth once daily. Taking Yes pantoprazole DR (PROTONIX) 40 mg tablet Take 1 tablet by mouth once daily. Taking Yes polyethylene glycol 3350 (MIRALAX ORAL) Take by mouth once daily. Taking Yes Magnesium Oxide 500 mg magnesium tab Take by mouth once daily. Taking Yes No medication comments found. ALLERGIES Allergen Reactions Seasonal Allergies Other: See Comments Sneeze,runny nose Objective PHYSICAL EXAM: VITALS: BP 118/76 Pulse 73 Temp (Src) 97.9 (Oral) Resp 16 Ht 6' 0 (1.83m) Wt 161 lb 9.6 oz (73.3kg) SpO2 100% BMI 21.91 kg/(m^2). General: Alert and oriented Skin: Normal color, no rash, no lesions. HEENT: EOM, pupils equal, round and reactive. Cardiovascular: Normal S1 & S2, no rubs, murmurs or gallops. No JVD. Pulse regular. Lungs: Normal breath sounds, no wheezes or crackles. Abdomen: Soft, non-tender, no rigidity. Extremities: No deformity, no edema or tenderness, no joint swelling or clubbing. Neurological: Normal cognition and motor skills. Pulses: Carotid and radial pulses normal +2. Diagnostic tests reviewed for today's visit: Lab Value Units Date High Low HB No results within date range. HCT No results within date range. WBC No results within date range. PLT No results within date range. NA 139 mmol/L 06/15/2024 144 136 K 4.2 mmol/L 06/15/2024 5.1 3.7 GLUC 97 mg/dL 06/15/2024 99 74 BUN 15 mg/dL 06/15/2024 24 9 CREAT 1.09 mg/dL 06/15/2024 1.22 0.73 PTSEC No results within date range. INR No results within date range. APTT No results within date range. ALT No results within date range. AST No results within date range. TBILI No results within date range. TSH 2.590 mIU/L 06/15/2024 4.200 0.270 Lab Value Units Date High Low HCGQT No results within date range. UHCG No results within date range. HCG, BODY* No results within date range. Lab Value Units Date High Low ABORHD No results within date range. ABSCREEN No results within date range. No results found for: HBA1C Most recent labs Instructions Given to Patient: Instructions located in the after visit summary. Patient given verbal and written preop instructions and voices comprehension and compliance. SIGNATURE: Venita Ann PA-C PATIENT NAME: Raymond Araujo DATE: 09/25/2024 TIME: 7:56 AM [facility] 09-25-2024 History and physical note Images from the original note were not included. [facility] HISTORY AND PHYSICAL EXAMINATION SERVICE DATE: 09/25/2024 SERVICE TIME: 7:37 AM PRIMARY CARE PHYSICIAN: Glory Tovar DO REASON FOR VISIT: Raymond Araujo is a 44 year old male who is scheduled for Bilateral - LARYNGOSCOPY, DIRECT, OPERATIVE, W/ OPERATING MICROSCOPE OR TELESCOPE,W/SUBMUCOSAL REMOVAL OF NON-NEOPLASTIC LESION OF VOCAL CORD; RECONSTRUCTION WITH LOCAL TISSUE FLAP(S) at the request of Dr. Ramsey for consultation. My final recommendation will be communicated back to the requesting physician by way of shared medical record or letter. Assessment Patient has the following medical conditions which may affect brodie-operative course: GERD (gastroesophageal reflux disease) Assessment: takes pantoprazole daily GERD (gastroesophageal reflux disease) Assessment: takes pantoprazole daily Joseph Activity Status Index: METS: Walk indoors, such as around the house (1.75 METs) Do light work around the house, such as dusting or washing dishes (2.70 METs) Take care of self; that is eating, dressing, bathing, using the toilet (2.75 METs) Walk a block or two on level ground (2.75 METs) Do moderate work around the house, such as vacuuming, sweeping floors, or carrying in groceries (3.50 METs) Do yardwork, such as raking leaves, weeding, or pushing a power mower (4.50 METs) Climb a flight of stairs or walk up a hill (5.50 METs) DASI Score: 23.45 Patient denies any chest pain or undue shortness of breath with the above physical activity. STOP-Bang Score: Snores loudly Has been observed to stop breathing or choking/gasping during sleep Male patient Denies feeling tired, fatigued, or sleepy during the daytime Denies having high blood pressure BMI less than or equal to 35 kg/m^2 Patient 50 years old or younger Does not have a large neck STOP-Bang Score: 3 [id number] Score: Age: <65 Sex: male CHF history: No Hypertension history: No Stroke/TIA/thromboembolism history: No Vascular disease history: No Diabetes history: No [id number] Score: 0 ANESTHESIA FINDINGS: Intubation History: No prior intubation Significant Anesthesia Considerations: has never had anesthesia Airway History: No prior intubation I - PHYSICAL EVALUATION AIRWAY Patient intubated: No. Tracheostomy tube not present Mallampati: I. TM distance: >3 FB. Neck ROM: full ROM without neurological symptoms. Mouth opening: adequate. Short neck: no. Thick neck: no Dennis present: no Microretrognathia/Micronagthia/R ecessed Chin: No DENTAL Dental findings: teeth intact. Additional comments: Caps/crowns. II - ANESTHESIA PLAN Beta Yolis Monitoring Plan Post Procedure Analgesic Plan Prepared for surgery: This patient is optimally prepared for surgery. CONSULTS: Patient does not require consults for optimization at this time. The Following Tests/Procedures Have Been Initiated: Labs not indicated per [facility] protocol, EKG not indicated per [facility] protocol Planned Anesthetic: Per anesthesia choice Subjective CHIEF COMPLAINT: vocal cord polyp HPI: Raymond is a 44 y/o male who c/o hoarse voice x 2 years, that has worsened over the past 5 months. No recent illness, difficulty breathing or difficulty swallowing. He has been diagnosed with a vocal cord polyp and is scheduled for surgery on 10/11. REVIEW OF SYSTEMS: PAIN ASSESSMENT: General: No weight loss, malaise or fevers. Neuro: Negative for headaches, seizures, tremor or stroke Respiratory: Negative for cough, wheezing or shortness of breath. Negative for hemoptysis. Negative for sleep apnea. Cardiovascular: Negative for chest pain, orthopnea, PND, dizziness, lightheadedness or syncope. Negative for heart murmur. Negative for palpitations or arrhythmia. Negative for h/o DVT/PE. Negative for LE edema GI: Negative for abdominal pain, blood in the stool, black stools or change in bowel habits : No history of UTI in past 6 weeks. No history of renal failure. Not currently on or requiring dialysis. Negative for dysuria, hematuria, urgency, frequency or incontinence Endocrine: Negative for polyuria, polydipsia, heat or cold intolerance. Negative for goiter Hematology: No history of bleeding or clotting disorder. Pt is not taking anti-coagulation or platelet medications. No history of hematological symptoms or problems. Oncology: No history of CA metastasis, chemo within 30 days, or radiotherapy within 90 days. Has not lost 10% of body wt in 6 months. No history of oncological symptoms or problems. Psych: No history of psychiatric symptoms or problems. Marijuana use: No Musculoskeletal: Negative for joint pain or swelling, back pain or muscle pain. Skin: Negative for lesions, rash and itching. Implanted Devices: No The patient has the following: ACTIVE PROBLEM LIST Internal Hemorrhoids Fatigue Seasonal Allergies Gerd (Gastroesophageal Reflux Disease) Covid Immunization Dates Overdue - Covid-19 Vaccine () Never done No completion, postpone, frequency change, or communication history exists for this topic. PAST MEDICAL HISTORY Diagnosis Date GERD (gastroesophageal reflux disease) Seasonal allergies PAST SURGICAL HISTORY Procedure Laterality Date NONE FAMILY HISTORY Problem Relation Age of Onset Thyroid Mother Hypertension Mother other (vitiligo) Father None Sister None Brother None Brother None Brother Cancer Maternal Grandmother Social History Tobacco Use Smoking status: Never Smokeless tobacco: Never Vaping Use Vaping status: Never Used Substance Use Topics Alcohol use: No Drug use: No Prior to Admission medications as of 09/25/24 0753 Medication Sig Last Dose Taking L.acidophilus-L.rhamnosus (PROBIOTIC) 15 billion cell capsule Take 1 capsule by mouth once daily. Taking Yes pantoprazole DR (PROTONIX) 40 mg tablet Take 1 tablet by mouth once daily. Taking Yes polyethylene glycol 3350 (MIRALAX ORAL) Take by mouth once daily. Taking Yes Magnesium Oxide 500 mg magnesium tab Take by mouth once daily. Taking Yes No medication comments found. ALLERGIES Allergen Reactions Seasonal Allergies Other: See Comments Sneeze,runny nose Objective PHYSICAL EXAM: VITALS: BP 118/76 Pulse 73 Temp (Src) 97.9 (Oral) Resp 16 Ht 6' 0 (1.83m) Wt 161 lb 9.6 oz (73.3kg) SpO2 100% BMI 21.91 kg/(m^2). General: Alert and oriented Skin: Normal color, no rash, no lesions. HEENT: EOM, pupils equal, round and reactive. Cardiovascular: Normal S1 & S2, no rubs, murmurs or gallops. No JVD. Pulse regular. Lungs: Normal breath sounds, no wheezes or crackles. Abdomen: Soft, non-tender, no rigidity. Extremities: No deformity, no edema or tenderness, no joint swelling or clubbing. Neurological: Normal cognition and motor skills. Pulses: Carotid and radial pulses normal +2. Diagnostic tests reviewed for today's visit: Lab Value Units Date High Low HB No results within date range. HCT No results within date range. WBC No results within date range. PLT No results within date range. NA 139 mmol/L 06/15/2024 144 136 K 4.2 mmol/L 06/15/2024 5.1 3.7 GLUC 97 mg/dL 06/15/2024 99 74 BUN 15 mg/dL 06/15/2024 24 9 CREAT 1.09 mg/dL 06/15/2024 1.22 0.73 PTSEC No results within date range. INR No results within date range. APTT No results within date range. ALT No results within date range. AST No results within date range. TBILI No results within date range. TSH 2.590 mIU/L 06/15/2024 4.200 0.270 Lab Value Units Date High Low HCGQT No results within date range. UHCG No results within date range. HCG, BODY* No results within date range. Lab Value Units Date High Low ABORHD No results within date range. ABSCREEN No results within date range. No results found for: HBA1C Most recent labs Instructions Given to Patient: Instructions located in the after visit summary. Patient given verbal and written preop instructions and voices comprehension and compliance. SIGNATURE: Venita Ann PA-C PATIENT NAME: Raymond Araujo DATE: 09/25/2024 TIME: 7:56 AM documented in this encounter [facility] 08-08-2024 Nurse Note Tobacco Use: Never Was smoking cessation packet given? N/A - Patient is a non-smoker or quit >1 year ago. Was a referral initiated?N/A Patient is a non-smoker Patient Entered Questionnaires 07/30/2024 08/07/2024 Voice Handicap Index Score Physical Score 20 20 Functional Score 20 19 Emotional Score 20 19 Total Score 60 58 07/30/2024 08/07/2024 Voice Handicap Index Score Physical Score 20 20 Functional Score 20 19 Emotional Score 20 19 VHI Total Score 60 58 \ [facility] 08-08-2024 Nurse Note Tobacco Use: Never Was smoking cessation packet given? N/A - Patient is a non-smoker or quit >1 year ago. Was a referral initiated?N/A Patient is a non-smoker Patient Entered Questionnaires 07/30/2024 08/07/2024 Voice Handicap Index Score Physical Score 20 20 Functional Score 20 19 Emotional Score 20 19 Total Score 60 58 07/30/2024 08/07/2024 Voice Handicap Index Score Physical Score 20 20 Functional Score 20 19 Emotional Score 20 19 VHI Total Score 60 58 \ documented in this encounter [facility] 08-08-2024 Note HNO ID: [id number] Author: KIA RAMSEY MD Service: ? Author Type: Physician Type: Progress Notes Filed: 08/08/2024 09:08 Note Text: CC: Raymond Araujo is a 44 year old male seen as a return patient but new to me with a history of dysphonia IMPRESSION AND PLANS: He presents today with two years of dysphonia. Exam is notable for a left sided vocal fold polyp with opposing contact nodule on the right. We discussed three arms of management. This includes observation, surgical management, and voice therapy. Observation is not expected to provide any benefit, he will continue to have trouble with his voice. Voice therapy may be a useful adjunct, however, with surgical management, we will likely be able to get his voice back to normal function. We discussed post operative care including three days of voice rest and then two weeks of gentle voice use, with a total downtime of about 6-8 weeks. During this time, it would be helpful for him to work with our speech pathology colleagues as well. He will stay on protonix in the perioperative period and we have re-prescribed.. Risks of DML and microflap excision of left true vocal fold polyp and right true vocal fold nodule, with possible decadron injection were discussed. This can be done under THRIVE. Consent was signed. The risks, benefits and alternatives of direct microlaryngoscopy with excision of a vocal fold mass(es) were explained in detail including but not limited to the risk of anethesia, bleeding, infection, worsening voice, recurrent lesion or the need for further surgery, injury to the teeth and numbness of the tongue. The patient did seem to understand and did wish to proceed, a consent was signed and a pre-operative assessment was performed. Updated HANDP completed in clinic today. Physical exam: Resp: CTA b/l, no wheezing or rhonchi Cardio: S1, S2, no murmurs, RRR HPI: 44 year old male with two years of dysphonia. He has frequently been losing his voice, but since February, it has been more challenging to recover with each episode. He will lose his voice with more use. He uses vocal rest to get his voice back with each episode. He notes roughness to the voice. He denies pain with speaking. He is on Protonix 40 mg daily. He is a never smoker. He has never done voice therapy. His voice is not at 100% today. 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 ALLERGIES No Known Allergies Current Outpatient Medications Medication Sig pantoprazole DR (PROTONIX) 40 mg tablet take 1 tablet by mouth once daily. polyethylene glycol 3350 (MIRALAX ORAL) Take by mouth once daily. Magnesium Oxide 500 mg magnesium tab Take by mouth once daily. No current facility-administered medications for this visit. PAST MEDICAL HISTORY Diagnosis Date GERD (gastroesophageal reflux disease) Seasonal allergies PAST SURGICAL HISTORY Procedure Laterality Date NONE Social History: Social History Tobacco Use Smoking status: Never Smokeless tobacco: Never Vaping Use Vaping status: Never Used Substance Use Topics Alcohol use: No Drug use: No PHYSICAL EXAM: On physical examination Raymond Araujo is a well-developed, well nourished male. The voice is mildly rough. Cranial nerves II-XII are grossly intact Mental status revealed patient to be alert and oriented. Mood is appropriate. Details of the physical examination: HEAD AND FACE: Physical examination of the head, neck, external nose, external ears, mouth and face fails to demonstrate any significant abnormality or asymmetry to critical face to face observation. Skin and scalp are normal. ORAL CAVITY/OROPHARYNX: No masses or lesions LARYNX: Stroboscopy by Essence Smith on 08/02/24 was reviewed. This is notable for a left sided vocal fold polyp and opposing contact nodule on the right. There is incomplete closure around the polyp. NECK: No masses or lesions. VHI (original/full) Patient Entered Questionnaires 07/30/2024 08/07/2024 Voice Handicap Index Score Physical Score 20 20 Functional Score 20 19 Emotional Score 20 19 VHI Total Score 60 58 CHARTS REVIEWED: Progress Note from Essence Smith 08/02/24, Note from Giovanny Lu Stroboscopy 08/02/24 I participated in the history and physical exam of Raymond Araujo. I discussed the management of Raymond Araujo with the resident. I reviewed the note and agree with the documented findings and plan of care. Kia Ramsey MD Medical Decision Making: Problems: Moderate: New problem with uncertain prognosis Data: Unique source(s) for external note(s) reviewed: 2 Unique test result(s) reviewed: 1 Unique test(s) ordered: 1 Risk: Moderate: Drug management Medical Decision Making Level: 4 - Moderate [facility] 08-08-2024 History of Presen t illness Narrative CC: Raymond Araujo is a 44 year old male seen as a return patient but new to me with a history of dysphonia IMPRESSION AND PLANS: He presents today with two years of dysphonia. Exam is notable for a left sided vocal fold polyp with opposing contact nodule on the right. We discussed three arms of management. This includes observation, surgical management, and voice therapy. Observation is not expected to provide any benefit, he will continue to have trouble with his voice. Voice therapy may be a useful adjunct, however, with surgical management, we will likely be able to get his voice back to normal function. We discussed post operative care including three days of voice rest and then two weeks of gentle voice use, with a total downtime of about 6-8 weeks. During this time, it would be helpful for him to work with our speech pathology colleagues as well. He will stay on protonix in the perioperative period and we have re-prescribed.. Risks of DML and microflap excision of left true vocal fold polyp and right true vocal fold nodule, with possible decadron injection were discussed. This can be done under THRIVE. Consent was signed. The risks, benefits and alternatives of direct microlaryngoscopy with excision of a vocal fold mass(es) were explained in detail including but not limited to the risk of anethesia, bleeding, infection, worsening voice, recurrent lesion or the need for further surgery, injury to the teeth and numbness of the tongue. The patient did seem to understand and did wish to proceed, a consent was signed and a pre-operative assessment was performed. Updated H&P completed in clinic today. Physical exam: Resp: CTA b/l, no wheezing or rhonchi Cardio: S1, S2, no murmurs, RRR HPI: 44 year old male with two years of dysphonia. He has frequently been losing his voice, but since February, it has been more challenging to recover with each episode. He will lose his voice with more use. He uses vocal rest to get his voice back with each episode. He notes roughness to the voice. He denies pain with speaking. He is on Protonix 40 mg daily. He is a never smoker. He has never done voice therapy. His voice is not at 100% today. 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 ALLERGIES No Known Allergies Current Outpatient Medications Medication Sig pantoprazole DR (PROTONIX) 40 mg tablet take 1 tablet by mouth once daily. polyethylene glycol 3350 (MIRALAX ORAL) Take by mouth once daily. Magnesium Oxide 500 mg magnesium tab Take by mouth once daily. No current facility-administered medications for this visit. PAST MEDICAL HISTORY Diagnosis Date GERD (gastroesophageal reflux disease) Seasonal allergies PAST SURGICAL HISTORY Procedure Laterality Date NONE Social History: Social History Tobacco Use Smoking status: Never Smokeless tobacco: Never Vaping Use Vaping status: Never Used Substance Use Topics Alcohol use: No Drug use: No PHYSICAL EXAM: On physical examination Raymond Araujo is a well-developed, well nourished male. The voice is mildly rough. Cranial nerves II-XII are grossly intact Mental status revealed patient to be alert and oriented. Mood is appropriate. Details of the physical examination: HEAD AND FACE: Physical examination of the head, neck, external nose, external ears, mouth and face fails to demonstrate any significant abnormality or asymmetry to critical face to face observation. Skin and scalp are normal. ORAL CAVITY/OROPHARYNX: No masses or lesions LARYNX: Stroboscopy by Essence Smith on 08/02/24 was reviewed. This is notable for a left sided vocal fold polyp and opposing contact nodule on the right. There is incomplete closure around the polyp. NECK: No masses or lesions. VHI (original/full) Patient Entered Questionnaires 07/30/2024 08/07/2024 Voice Handicap Index Score Physical Score 20 20 Functional Score 20 19 Emotional Score 20 19 VHI Total Score 60 58 CHARTS REVIEWED: Progress Note from Essence Smith 08/02/24, Note from Giovanny Lu Stroboscopy 08/02/24 I participated in the history and physical exam of Raymond Araujo. I discussed the management of Raymond Araujo with the resident. I reviewed the note and agree with the documented findings and plan of care. Kia Ramsey MD Medical Decision Making: Problems: Moderate: New problem with uncertain prognosis Data: Unique source(s) for external note(s) reviewed: 2 Unique test result(s) reviewed: 1 Unique test(s) ordered: 1 Risk: Moderate: Drug management Medical Decision Making Level: 4 - Moderate documented in this encounter [facility] 08-02-2024 Note HNO ID: [id number] Author: ESSENCE SMITH APRN.MANAGED CARE SPECIALIST Service: ? Author Type: Nurse Practitioner Type: Progress Notes Filed: 08/02/2024 08:58 Note Text: IMPRESSION: -Vocal cord polyp -Dysphonia PLAN: Discussed findings, diagnosis and management options with patient. - Raymond Araujo is presenting today for evaluation of hoarseness. Reports hoarseness for the last 2 years that will worsen the more he talks. Hoarseness has seem to be worse in the last 5 months. On video stroboscopy exam today, bilateral cords are mobile with a small polyp on the left anterior cord medial edge. Recommend following up with chief nuclear medicine technologist to discuss possible surgical options to remove the vocal cord polyp. FOLLOW UP: Return to see chief nuclear medicine technologist. Call sooner if problems develop. Essence Smith APRN.MANAGED CARE SPECIALIST Referring Provider: I was consulted by self for dysphonia. Response to consult is via shared electronic medical record for my opinion. Reason for Consult: Raymond Araujo is a 44 year old male who presents to [facility] Otolaryngology Department. Patient presents with: New Patient HPI: Raymond Araujo is a 44 year old male who presents with hoarseness. Over the last 2 years reports frequently losing his voice. Since February this past year, has been harder to get his voice back. Does have a hx of reflux, was started on Protonix, but voice really has not improved. Voice will worsen the more he uses it. Will improve with vocal rest. No difficulty swallowing. No pain, but maybe some slight discomfort. Never smoker. VHI: 07/30/2024 Voice Handicap Index Score Physical Score 20 Functional Score 20 Emotional Score 20 VHI Total Score 60 07/30/2024 Voice Handicap Index Score Physical Score 20 Functional Score 20 Emotional Score 20 Total Score 60 PAST MEDICAL HISTORY PAST MEDICAL HISTORY Diagnosis Date GERD (gastroesophageal reflux disease) Seasonal allergies PAST SURGICAL HISTORY PAST SURGICAL HISTORY Procedure Laterality Date NONE SOCIAL HISTORY Tobacco Use: Never Alcohol Use: No FAMILY HISTORY FAMILY HISTORY Problem Relation Age of Onset Thyroid Mother Hypertension Mother other (vitiligo) Father None Sister None Brother None Brother None Brother Cancer Maternal Grandmother MEDICATIONS polyethylene glycol 3350 (MIRALAX ORAL) Take by mouth once daily. Magnesium Oxide 500 mg magnesium tab Take by mouth once daily. pantoprazole DR (PROTONIX) 40 mg tablet Take 1 tablet by mouth once daily. ALLERGIES Patient has no known allergies. REVIEW OF SYSTEMS: Review of systems template on 08/02/2024 was completed in entirety on day of appointment and negative except where noted below: Constitutional: Negative for fever, appetite change, weight loss, weight gain Neurological: Negative for headaches, no history of stroke or seizure ENT: See HPI Cardiovascular: Negative for chest pain, dyspnea on exertion Respiratory: Is not experiencing shortness of breath. No history of asthma, COPD or recent pneumonia Gastrointestinal: Negative for nausea, vomiting Endo: No history of diabetes or thyroid disorders Heme/Lymph: No history of bleeding disorder Allergy: Negative for seasonal allergies, nasal congestion PHYSICAL EXAM Physical exam template on 08/02/2024 was completed in entirety on day of appointment and negative except where noted below: Vital Signs: There were no vitals taken for this visit. General: Well-developed, well-nourishes. No distress Respiratory Effort: Equal inspiration and expiration without stridor and is breathing comfortably on room air. Cardiovascular: No peripheral edema. Neuro: Awake, alert and oriented x3 Ears: External ear is intact. Nose: No scar or anatomic deformity. Septum is intact. Mucosa is pink without any purulence or polyps. Oral Cavity: Normal lips. The dentition is fair. The mucosal surfaces are moist with no lesions or abnormalities, tonsillar fossa symmetric. The oropharynx and pharynx is unremarkable and without lesions. Larynx: Please see scope exam below Neck:The neck is atraumatic and without scars. Trachea is midline. There is no lymphadenopathy, no skin lesions and no neck masses appreciated. Voice:Perceptual voice evaluation demonstrates dysphonia which is Mild. Voice is raspy and strained. DATA: Previous notes reviewed PROCEDURE PROCEDURE NOTE: Recommended Videostroboscopy PROCEDURE: Videostroboscopy PREOPERATIVE DIAGNOSIS: dysphonia POSTOPERATIVE DIAGNOSIS: vocal cord polyp INDICATIONS: Evaluation larynx to:evaluate lesion and assess vibratory margin All the risks, benefits, and potential complications were reviewed with the patient prior to the procedure and verbal consent was obtained. ANESTHESIA: Lidocaine 4% Procedure: The patient was seated upright in the exam chair. Topical lidocaine appl (more content not included)... [facility] 08-02-2024 History of Presen t illness Narrative Images from the original note were not included. IMPRESSION: -Vocal cord polyp -Dysphonia PLAN: Discussed findings, diagnosis and management options with patient. - Raymond Araujo is presenting today for evaluation of hoarseness. Reports hoarseness for the last 2 years that will worsen the more he talks. Hoarseness has seem to be worse in the last 5 months. On video stroboscopy exam today, bilateral cords are mobile with a small polyp on the left anterior cord medial edge. Recommend following up with chief nuclear medicine technologist to discuss possible surgical options to remove the vocal cord polyp. FOLLOW UP: Return to see chief nuclear medicine technologist. Call sooner if problems develop. Essence Smith APRN.[place]TON Referring Provider: I was consulted by self for dysphonia. Response to consult is via shared electronic medical record for my opinion. Reason for Consult: Raymond Araujo is a 44 year old male who presents to [facility] Otolaryngology Department. Patient presents with: New Patient HPI: Raymond Araujo is a 44 year old male who presents with hoarseness. Over the last 2 years reports frequently losing his voice. Since February this past year, has been harder to get his voice back. Does have a hx of reflux, was started on Protonix, but voice really has not improved. Voice will worsen the more he uses it. Will improve with vocal rest. No difficulty swallowing. No pain, but maybe some slight discomfort. Never smoker. VHI: 07/30/2024 Voice Handicap Index Score Physical Score 20 Functional Score 20 Emotional Score 20 VHI Total Score 60 07/30/2024 Voice Handicap Index Score Physical Score 20 Functional Score 20 Emotional Score 20 Total Score 60 PAST MEDICAL HISTORY PAST MEDICAL HISTORY Diagnosis Date GERD (gastroesophageal reflux disease) Seasonal allergies PAST SURGICAL HISTORY PAST SURGICAL HISTORY Procedure Laterality Date NONE SOCIAL HISTORY Tobacco Use: Never Alcohol Use: No FAMILY HISTORY FAMILY HISTORY Problem Relation Age of Onset Thyroid Mother Hypertension Mother other (vitiligo) Father None Sister None Brother None Brother None Brother Cancer Maternal Grandmother MEDICATIONS polyethylene glycol 3350 (MIRALAX ORAL) Take by mouth once daily. Magnesium Oxide 500 mg magnesium tab Take by mouth once daily. pantoprazole DR (PROTONIX) 40 mg tablet Take 1 tablet by mouth once daily. ALLERGIES Patient has no known allergies. REVIEW OF SYSTEMS: Review of systems template on 08/02/2024 was completed in entirety on day of appointment and negative except where noted below: Constitutional: Negative for fever, appetite change, weight loss, weight gain Neurological: Negative for headaches, no history of stroke or seizure ENT: See HPI Cardiovascular: Negative for chest pain, dyspnea on exertion Respiratory: Is not experiencing shortness of breath. No history of asthma, COPD or recent pneumonia Gastrointestinal: Negative for nausea, vomiting Endo: No history of diabetes or thyroid disorders Heme/Lymph: No history of bleeding disorder Allergy: Negative for seasonal allergies, nasal congestion PHYSICAL EXAM Physical exam template on 08/02/2024 was completed in entirety on day of appointment and negative except where noted below: Vital Signs: There were no vitals taken for this visit. General: Well-developed, well-nourishes. No distress Respiratory Effort: Equal inspiration and expiration without stridor and is breathing comfortably on room air. Cardiovascular: No peripheral edema. Neuro: Awake, alert and oriented x3 Ears: External ear is intact. Nose: No scar or anatomic deformity. Septum is intact. Mucosa is pink without any purulence or polyps. Oral Cavity: Normal lips. The dentition is fair. The mucosal surfaces are moist with no lesions or abnormalities, tonsillar fossa symmetric. The oropharynx and pharynx is unremarkable and without lesions. Larynx: Please see scope exam below Neck:The neck is atraumatic and without scars. Trachea is midline. There is no lymphadenopathy, no skin lesions and no neck masses appreciated. Voice:Perceptual voice evaluation demonstrates dysphonia which is Mild. Voice is raspy and strained. DATA: Previous notes reviewed PROCEDURE PROCEDURE NOTE: Recommended Videostroboscopy PROCEDURE: Videostroboscopy PREOPERATIVE DIAGNOSIS: dysphonia POSTOPERATIVE DIAGNOSIS: vocal cord polyp INDICATIONS: Evaluation larynx to:evaluate lesion and assess vibratory margin All the risks, benefits, and potential complications were reviewed with the patient prior to the procedure and verbal consent was obtained. ANESTHESIA: Lidocaine 4% Procedure: The patient was seated upright in the exam chair. Topical lidocaine applied to the nasal cavity. After adequate anesthesia had occurred, the flexible telescope was passed into the nasal cavity. The nasopharynx was patent without mass or lesion. The scope was passed behind the soft palate and directed toward the base of tongue. The base of tongue was visualized and was symmetric with no apparent masses or abnormal appearing tissue. There were no signs of a mass or pooling of secretions in the piriform sinuses. The supraglottic structures were normal. The true vocal cords are mobile bilaterally. Small polyp on the left anterior cord medial edge. Mucosal wave is present but reduced on the left. Closure is complete. The laryngoscope was then slowly withdrawn. The patient tolerated the procedure well. There were no complications or blood loss. Essence Smith APRN.CNP Medical Decision Making: Problems: Moderate: New problem with uncertain prognosis Risk: Low: Low risk from testing/treatment Medical Decision Making Level: 3 - Low This note was partially generated using [employer] voice recognition system. Please note that occasional wind site manager errors may be made. documented in this encounter [facility] 08-02-2024 Nurse Note Patient Entered Questionnaires 07/30/2024 Voice Handicap Index Score Physical Score 20 Functional Score 20 Emotional Score 20 Total Score 60 07/30/2024 Voice Handicap Index Score Physical Score 20 Functional Score 20 Emotional Score 20 VHI Total Score 60 [facility] 08-02-2024 Nurse Note Patient Entered Questionnaires 07/30/2024 Voice Handicap Index Score Physical Score 20 Functional Score 20 Emotional Score 20 Total Score 60 07/30/2024 Voice Handicap Index Score Physical Score 20 Functional Score 20 Emotional Score 20 VHI Total Score 60 documented in this encounter [facility] 06-18-2024 Telephone encounter Note Pt notified, he received the fax. They were faxed 10 min ago. [facility] 06-18-2024 Miscellaneous Notes Pt notified, he received the fax. They were faxed 10 min ago. Pt Calling in to request an update on Forms that were given to Herlinda on visit on 05/30/24. Pt was told after labs are completed the forms will then be completed. Please fax forms to [phone] forms at the front to be picked up Please call Pt with update documented in this encounter [facility] 06-18-2024 Telephone encounter Note Pt Calling in to request an update on Forms that were given to Herlinda on visit on 05/30/24. Pt was told after labs are completed the forms will then be completed. Please fax forms to [phone] forms at the front to be picked up Please call Pt with update [facility] 05-30-2024 Note HNO ID: [id number] Author: GIOVANNY LU APRN.MANAGED CARE SPECIALIST Service: ? Author Type: Nurse Practitioner Type: Progress Notes Filed: 06/12/2024 09:37 Note Text: SUBJECTIVE: Raymond Araujo is a 44 year old male here today for an annual physical. I reviewed his past medical, surgical, social, and family histories today and updated chart. Allergies, chronic medications, and supplements were also reviewed and his list in the chart is now up to date. Concern(s) today include: loss of voice/gerd Loss of voice: last few years, progressively worse the last few months. Occur with long speeches ~ 1 hour , or on phone a lot, at times he has extended phones conversations for work. Feels tight/tense. Hx of GERD. Use to take medication for. He is now taking otc pepcid without improvement Denies coughing, retrosternal burning/pressure, MORIN, facial tenderness, ear pressure, rhinitis, difficulty swallowing His medications were reviewed today and his list is now up to date. He is compliant on taking his medications :N/A He is tolerating his medication(s) without side effects: N/A He is following an appropriate diet for his medical problems: Yes He is getting some exercise in? Yes Social History Tobacco Use Smoking status: Never Smokeless tobacco: Never Substance Use Topics Alcohol use: No Drug use: No REVIEW OF SYSTEMS: Problems with vision? No Problems with hearing? No Chest pains? No Shortness of breath? No Changes in bowel function? No Changes in urination? No Changes in mood? No PHYSICAL EXAMINATION: BP 108/64 Pulse 90 Wt 71.1 kg (156 lb 12 oz) SpO2 99% BMI 21.26 kg/m? BMI 21.26 kg/(m2) General appearance: Well appearing, alert, in no acute distress, well-hydrated, well nourished. Skin: Skin color, texture, turgor normal, no suspicious rashes or lesions Head: Normocephalic, no masses, lesions, tenderness or abnormalities Eyes: Anicteric sclera. Pupils are equally round and reactive to light. Extraocular movements are intact. Ears: External ears normal, canals clear Nose/Sinuses: Nares normal, septum midline, mucosa normal, no drainage or sinus tenderness Oropharynx: Lips, mucosa, and tongue normal, teeth and gums normal, oropharynx normal Neck: Supple, no adenopathy; thyroid symmetric, normal size, no bruits Lungs: Lungs clear to auscultation. No wheezing, rhonchi, rales. Heart: RRR without murmur, gallop, or rubs. No ectopy Abdomen: Normal abdominal exam, Abdomen soft, non-tender. Bowel sounds normal. No masses, organomegaly. Extremities: No deformities, edema, skin discoloration, clubbing or cyanosis. ASSESSMENT/PLAN: 1. Routine physical examination - ICD9: V70.0, ICD10: Z00.00 (primary diagnosis) - Counseled on healthy diet and regular exercise - Follow up for annual exam in one year - LIPID PANEL BASIC - BASIC METABOLIC PANEL 2. Screening for depression - ICD9: V79.0, ICD10: Z13.31 - DEPRESSION SCREENING 3. Encounter for screening examination for other mental health and behavioral disorders - ICD9: V79.8, ICD10: Z13.39 - ANXIETY SCREENING 4. Encounter for immunization - ICD9: V03.89, ICD10: Z23 - TDAP VACCINE, AGE 7+ YR (ADACEL, BOOSTRIX) 5. Screening for thyroid disorder - ICD9: V77.0, ICD10: Z13.29 - THYROID STIMULATING HORMONE 6. Screening for diabetes mellitus - ICD9: V77.1, ICD10: Z13.1 - BASIC METABOLIC PANEL 7. Screening for cholesterol level - ICD9: V77.91, ICD10: Z13.220 - LIPID PANEL BASIC 8. Gastroesophageal reflux disease, unspecified whether esophagitis present - ICD9: 530.81, ICD10: K21.9 - Discussed lifestyle modifications including losing weight, limiting caffeine, no meals three hours before sleep, and head of bed elevation - Begin treatment with Pantoprazole QD 9. Voice hoarseness - ICD9: 784.42, ICD10: R49.0 - will treat for GERD, d/t hx of - if no improvement within 2-4 weeks will refer to ENT Giovanny Lu APRN.MANAGED CARE SPECIALIST [facility] 12-14-2022 Instructions Jeanmarie Edge PA-C - 12/14/2022 12:55 PM EST ASSESSMENT/PLAN: 1. Acute non-recurrent sinusitis, unspecified location - ICD9: 461.9, ICD10: J01.90 - Will begin treatment with as per antibiotic as written, see orders - Supportive care with plenty of fluids, rest, and analgesia prn. - Follow up in 3-5 days if symptoms persist or worsen. If symptoms do not improve in 3-5 days, contact your Primary Care Provider. If symptoms progressively worsen, report to ER for evaluation. Patient verbalized understanding of plan. Please follow up with Primary Care Provider or with a Specialist if consulted for current condition. Go to the ER immediately if you have any of the following symptoms: Chest pain, shortness of breath, severe headache, high fever, nausea, vomiting, abdominal pain, dizziness/light headedness, feeling like you are going to pass out, weakness, or for any other new or worsening symptoms. documented in this encounter [facility] 12-14-2022 History of Presen t illness Narrative Telemedicine Visit - Distance Health Virtual Visit Note Patient seen on [employer] platform. Location of patient: [place] I have communicated my name and active licensure. The patient's identity and physical location were verified at the time of this visit. Either the patient or their legal sales representative uniforms has been informed of the risks and benefits of -- and alternatives to -- treatment through a remote evaluation and consents to proceed with the evaluation remotely. History of Present Illness Raymond Araujo is a 42 year old year old male who presents for the past 2 weeks with symptoms that are:waxing and waning. Symptoms include: Positive for Nasal congestion, PND, Rhinorrhea, Face pain/pressure, Otalgia, and Sore throat, Negative for Cough, SOB, Wheezing, Nausea, Emesis, and Diarrhea. Notes at the onset he did have fever and chills for one day. States he has yellow nasal discharge with PND causing hoarse voice. Tobacco use: No Sick contacts: denies Recent travel: last week was in [place] OTC meds/remedies that patient has tried: sudafed. PAST MEDICAL HISTORY Diagnosis Date Seasonal allergies PAST SURGICAL HISTORY Procedure Laterality Date NONE FAMILY HISTORY Problem Relation Age of Onset Thyroid Mother Hypertension Mother other (skin disturbance) Father None Sister None Brother None Brother Cancer Maternal Grandmother None Brother Social History Tobacco Use Smoking status: Never Smokeless tobacco: Never Substance Use Topics Alcohol use: No Drug use: No Current Outpatient Medications Medication Sig nitroglycerin (RECTIV) 0.4 % (w/w) oint by RECTAL route every 12 hours as needed for up to 14 days. [place] ointment Nifedipine 0.3 % Lidocaine 2% Hydrocortisone 1.5% rectal ointment Apply 2-3 times a day to rectal area and up to 1cm inside as directed No current facility-administered medications for this visit. ALLERGIES No Known Allergies Video Exam (Examination performed via Video enabled technology) General appearance: Alert, oriented, pleasant, in NAD :Yes Ill appearing :No Lethargic appearing :No Eyes: Sclera clear :Yes Conjunctiva without erythema :Yes Ears: Tragus / outer ear tenderness by self palpation :No Oropharynx: normal, no erythema Frontal sinus tenderness by self palpation;No Maxillary sinus tenderness by self palpation :No Tender cervical adenopathy by self palpation :No Respiratory distress :No Coughing noted :No Audible wheezing noted :No ASSESSMENT/PLAN: 1. Acute non-recurrent sinusitis, unspecified location - ICD9: 461.9, ICD10: J01.90 - Will begin treatment with as per antibiotic as written, see orders - Supportive care with plenty of fluids, rest, and analgesia prn. - Follow up in 3-5 days if symptoms persist or worsen. If symptoms do not improve in 3-5 days, contact your Primary Care Provider. If symptoms progressively worsen, report to ER for evaluation. Patient verbalized understanding of plan. Please follow up with Primary Care Provider or with a Specialist if consulted for current condition. Go to the ER immediately if you have any of the following symptoms: Chest pain, shortness of breath, severe headache, high fever, nausea, vomiting, abdominal pain, dizziness/light headedness, feeling like you are going to pass out, weakness, or for any other new or worsening symptoms. -Tylenol (generic acetaminophen) 500 mg-2 tabs every 8 hrs. as needed for fever and aches -Sudafed (generic is fine), behind the counter, 2x30 mg tabs twice daily as needed for congestion -Mucinex (generic is fine) 1200 mg twice daily to help with cough and to thin out mucus -http://[email or web address]/p [email or web address]-[email or web address]/. This link shares information about when antibiotics may help and when they may not. - Red flags discussed for need for in person care - All questions answered Jeanmarie Edge PA-C If you let us know who your primary care provider is, we will send them a notification of today s visit through our electronic medical records system. Since not all providers have access to our notifications, we strongly encourage you to share the following record of today s visit with your primary care provider at your next visit. This will help in providing you the best care. If you do not have an established Primary Care physician and would like to continue care with a [facility] Virtual Primary Care physician, please ask your provider to place a Establish Primary Care order. Use [employer] to manage your care, wherever you are, 02/05, on your mobile device or computer. [employer] connects you to [email or web address] so you can access all your health information in one place and also schedule and request virtual appointments with primary care providers. documented in this encounter [facility] Evaluation note Diagnosis Acute non-recurrent sinusitis, unspecified location- Primary [facility] Diagnosis Vocal cord polyp- Primary Polyp of vocal cord or larynx [facility] Dysphonia- Primary Vocal cord polyp Polyp of vocal cord or larynx Vocal fold nodule Other diseases of vocal cords Preoperative examination Preoperative examination, unspecified LPRD (laryngopharyngeal reflux disease) Other diseases of larynx [facility] Diagnosis Preoperative examination- Primary Preoperative examination, unspecified Gastroesophageal reflux disease, unspecified whether esophagitis present Dysphonia * Assessment & Plan Note - Venita Ann PA-C - 09/25/2024 7:53 AM EST Associated Problem(s): GERD (gastroesophageal reflux disease) Assessment: takes pantoprazole daily [facility]* Diagnosis Preoperative examination- Primary Preoperative examination, unspecified Gastroesophageal reflux disease, unspecified whether esophagitis present Vocal cord polyp- Primary Polyp of vocal cord or larynx Vocal fold nodule Other diseases of vocal cords Dysphonia LPRD (laryngopharyngeal reflux disease) Other diseases of larynx documented in this encounter [facility]* Diagnosis Preoperative examination- Primary Preoperative examination, unspecified Gastroesophageal reflux disease, unspecified whether esophagitis present Vocal fold polyp- Primary Polyp of vocal cord or larynx Vocal fold nodule Other diseases of vocal cords LPRD (laryngopharyngeal reflux disease) Other diseases of larynx Dysphonia [facility]* Diagnosis Preoperative examination- Primary Preoperative examination, unspecified Gastroesophageal reflux disease, unspecified whether esophagitis present Vocal cord polyp- Primary Polyp of vocal cord or larynx Vocal fold nodule Other diseases of vocal cords Dysphonia LPRD (laryngopharyngeal reflux disease) Other diseases of larynx documented in this encounter [facility] Reason for Referral Specialty Diagnoses / Procedures Referred By Ovidio leach Referred To Contact [facility] Diagnoses Vocal cord polyp Vocal fold nodule Procedures CONSULT TO SPEECH THERAPY OFFICE/OUTPATIENT [facility] 60 MINUTES Kia Ramsey MD [address] [place] [address] [facility] [address] [place] [id number] Referral ID Status Reason Start Date Expiration Date Visits Requested Visits Authorized [id number] Pending Review Auto-Generat ed Referral 10/19/2024 10/19/2025 1 1 Summary Purpose Family History No Family History Records Found Advance Directives No Advanced Directives Records Found Additional Source Comments Source Comments (unrecognize d section and content) In the event this informatio n is protected by the Federal Confidentiality of Alcohol and Drug Abuse Patient Records regulations: The Federal rules restrict any use of the information to criminally investigate or prosecute any alcohol or drug abuse patient.[facility] the event this information is protected by the Federal Confidentiality of Alcohol and Drug Abuse Patient Records regulations: The Federal rules restrict any use of the information to criminally investigate or prosecute any alcohol or drug abuse patient.[facility] the event this information is protected by the Federal Confidentiality of Alcohol and Drug Abuse Patient Records regulations: The Federal rules restrict any use of the information to criminally investigate or prosecute any alcohol or drug abuse patient.[facility] the event this information is protected by the Federal Confidentiality of Alcohol and Drug Abuse Patient Records regulations: The Federal rules restrict any use of the information to criminally investigate or prosecute any alcohol or drug abuse patient.[facility] the event this information is protected by the Federal Confidentiality of Alcohol and Drug Abuse Patient Records regulations: The Federal rules restrict any use of the information to criminally investigate or prosecute any alcohol or drug abuse patient.[facility] the event this information is protected by the Federal Confidentiality of Alcohol and Drug Abuse Patient Records regulations: The Federal rules restrict any use of the information to criminally investigate or prosecute any alcohol or drug abuse patient.[facility] the event this information is protected by the Federal Confidentiality of Alcohol and Drug Abuse Patient Records regulations: The Federal rules restrict any use of the information to criminally investigate or prosecute any alcohol or drug abuse patient.[facility] the event this information is protected by the Federal Confidentiality of Alcohol and Drug Abuse Patient Records regulations: The Federal rules restrict any use of the information to criminally investigate or prosecute any alcohol or drug abuse patient.[facility] the event this information is protected by the Federal Confidentiality of Alcohol and Drug Abuse Patient Records regulations: The Federal rules restrict any use of the information to criminally investigate or prosecute any alcohol or drug abuse patient.[facility] the event this information is protected by the Federal Confidentiality of Alcohol and Drug Abuse Patient Records regulations: The Federal rules restrict any use of the information to criminally investigate or prosecute any alcohol or drug abuse patient.[facility] the event this information is protected by the Federal Confidentiality of Alcohol and Drug Abuse Patient Records regulations: The Federal rules restrict any use of the information to criminally investigate or prosecute any alcohol or drug abuse patient.[facility] Reason for Visit (unrecogniz ed section and content) Reason Comments Congested Reason Comments New Patient Reason Comments Refill Request Reason Comments Anesthesia Consult Reason Comments Post Op Reason Comments Letter Asking for letter to give employer to request to [employer] certified internetwork expert, please contact Reason Comments Follow Up Care Teams (unrecognized sec tion and content) Parcel Post Clerk Relationship Specialty [place] [address] [place] [address] PCP - General Family Medicine 01/25/18 Parcel Post Clerk Relationship Specialty Start Date [place] [id number] [place] [address] PCP - General Family Medicine 01/25/18 Parcel Post Clerk Relationship Specialty Start Date End Date TulioGlory torres [id number] [place] [address] PCP - General Family Medicine 01/25/18 Parcel Post Clerk Relationship Specialty Start Date End Date Glory Tovar DO [address] [place] [id number] PCP - General Family Medicine 01/25/18 Parcel Post Clerk Relationship Specialty Start Date End Date TulioGlory torres DO [id number] [place] [address] PCP - General Family Medicine 01/25/18 Parcel Post Clerk Relationship Specialty Start Date End Date TulioGlory torres DO [id number] [place] [address] PCP - General Family Medicine 01/25/18 Parcel Post Clerk Relationship Specialty Start Date End Date [place]Glory torres DO [id number] [place] [address] PCP - General Family Medicine 01/25/18 Rupali Pro PA-C [address] [place] [address] Electronic Console Display Operator Family Medicine 09/14/24 Parcel Post Clerk Relationship Specialty [place] [address] [place] [address] PCP - General Family Medicine 01/25/18 Rupali Pro PA-C [address] [place] [address] Electronic Console Display Operator Family [facility] 09/14/24 Parcel Post Clerk Relationship Specialty [place] [address] [place] [address] PCP - General Family Medicine 01/25/18 Rupali Pro PA-C [address] [place] [address] Electronic Console Display Operator Family [facility] 09/14/24 Parcel Post Clerk Relationship Specialty [place] [address] [place] [address] PCP - General Family Medicine 01/25/18 Rupali Pro PA-C [address] [place] [address] Electronic Console Display Operator Family Medicine 09/14/24 (unrecognized sect ion and content) No Status Records Found INFORMATION SOURCE (unrecogn ized section and content) DATE CREATED AUTHOR 12/29/2024 [facility] FOR RECORDS PERTAINING TO PATIENTS WHO ARE OR HAVE BEEN ENROLLED IN A CHEMICAL DEPENDENCY/SUBSTANCEABUSE PROGRAM, SOME INFORMATION MAY BE OMITTED. This clinical summary was aggregated from multiple sources. Caution should be exercised in using it in the provision of clinical care. This summary normalizes information from multiple sources, and as a consequence, information in this document may materially change the coding, format and clinical context of patient data. In addition, data may be omitted in some cases. CLINICAL DECISIONS SHOULD BE BASED ON THE PRIMARY CLINICAL RECORDS. [facility] [employer] [facility]. provides no warranty or guarantee of the accuracy or completeness of information in this document.
[2025-05-16 22:19] LABS: Hematocrit 46.5 % (40-54); Hemoglobin 15.5 g/dL (13.0-16.5); Immature Granulocytes Count 0.010 X10^3/uL (0.0-0.0); Mean Corp Hgb Conc 33.3 g/dL (32-36); Mean Corpuscular Volume 91.0 fL (80-94); Mean Platelet Vol. 11.6 fl (6.2-12.0); NRBC Flagged by Analyzer 0 % (0-5); Platelet Count 218 K/mm3 (150-450); RBC Distribution Width CV 13.2 % (11.6-14.6); RBC Distribution Width SD 44.4 fl (35.1-43.9); Red Blood Count 5.11 M/mm3 (4.6-6.2); White Blood Count 6.2 K/mm3 (4.4-11.0)
[2025-05-16 22:33] LABS: AST(SGOT) 29 U/L (<=37); Alanine Aminotransfer ALT/SGPT 37 U/L (<=46); Albumin, Serum 4.8 g/dL (3.5-5.0); Alkaline Phosphatase 96 U/L (40-129); Anion Gap 13 (5-15); BUN 13 mg/dL (4-19); BUN/Creat Ratio 11.9 RATIO (10-20); Calcium,Total 9.8 mg/dL (7.6-11.0); Carbon Dioxide 25.9 mmol/L (21.0-32.0); Chloride 101 mmol/L (98-108); Cholesterol 218 mg/dL (<=200); Globulin 3.2 g/dL (2.2-4.2); Glucose 88 mg/dL (70-99); Low Density Lipoprotein Calc. 114 mg/dL; Potassium 3.8 mmol/L (3.3-5.1); Triglycerides 219 mg/dL; Very Low Density Lipoprotein 44 mg/dL (5-40); cholesterol:hdl ratio screen 3.61
== END | disposition home or self-care (01) ==
PROVIDERS: PCP Nurse Practitioner; Referring Provider Nurse Practitioner; Visit Provider Nurse Practitioner
DX: Z00.00 Encounter for general adult medical examination without abnormal findings (principal)
CPT/HCPCS: 80053; 80061; 85025